=== PATIENT | male | born 1990 | race Hispanic/Latino ===

== ENCOUNTER 2021-02-27 15:24 | Outpatient (CLI) | payer BC, SELFPAY ==
[2021-02-27] MEDS: 0.9% Saline Lock 10 ML Syringe IV (15:48)
[2021-02-27 15:50] VITALS: BP 164/96; PULSE 102; RESP 16; TEMP 36.9; O2SAT 98; BMI 39.3
[2021-02-27 16:35] VITALS: BP 144/83; PULSE 90; RESP 16; TEMP 36.9; O2SAT 99
[2021-02-27 17:25] VITALS: BP 150/89; PULSE 89; RESP 16; TEMP 36.9; O2SAT 99
== END 2021-02-27 17:35 | disposition home or self-care (01) ==
LOC: MS3OUT 15:24 → MS3 15:25
PROVIDERS: PCP Family Medicine; Referring Provider Nurse Practitioner Adult Health; Visit Provider Nurse Practitioner Adult Health
DX: U07.1 COVID-19 (principal)
CPT/HCPCS: J7050; M0245; Q0245; A4216

== ENCOUNTER 2024-01-12 17:35 | Emergency (ER) | payer BC, SELFPAY ==
[2024-01-12 17:36] VITALS: BP 182/124; PULSE 86; RESP 16; TEMP 36.1; O2SAT 99; BMI 38.0
[2024-01-12 17:38] VITALS: BP 171/106; PULSE 86; RESP 16; O2SAT 98
--- NOTE | 2024-01-12 19:17 | ED.RN ---
pt states he would like to call PCP tmrw and imaging and not continue to wait
--- OUTSIDE RECORDS SUMMARY | 2024-01-12 19:27 | XMS RPT_ITS | CCD ---
Author Organization [facility] Care Team Providers Care Head Of Cytogenetics Name Role Phone Stephane Grullon MD Primary Care Provider YADI CHOI, DR CALDERÓN Primary Care Physician YADI CHOI., DR. CALDERÓN Attending Unavail dulce maria GRULLON MD., DR. CALDERÓN Primary Care Unavail dulce maria GRULLON MD., DR. CALDERÓN Referring Unavail Stephane Thao MD Primary Care Provider Stephane Grullon MD Primary Care Provider Stephane Grullon MD Primary Care Provider STEPHANE GRULLON Attending STEPHANE Blackwell Primary Care Unavailable STEPHANE GRULLON Primary Care Unavailable STEPHANE GRULLON Referring STEPHANE Balckwell Primary Care Unavailable STEPHANE GRULLON Attending STEPHANE Blackwell Primary Care Unavailable LIZ MEJIA Referring Unavailable STEPHANE GRULLON Primary Care Unavailable Medications Current Medications Medication Drug Class(es) Dates Sig (Normalized) Sig (Original) CPAP (13 sources) Start: 02-03-2022 CPAP Indicatio ns: KIET (obstructive sleep apnea) Initiate Auto PAP @ 5-20 cm of water with humidification. Mask (per patient preference) optional chin strap (if indicated) , filters, tubing, humidifier and lifetime supplies. 1 Each 02/03/2022 Active Start: 02-03-2022 CPAP Indicatio ns: KIET (obstructive sleep apnea) Initiate Auto PAP @ 5-20 cm of water with humidification. Mask (per patient preference) optional chin strap (if indicated) , filters, tubing, humidifier and lifetime supplies. 1 Each 0 02/03/2022 Active Start: 09-25-2021 End: 02-03-2022 CPAP Indications: KIET (obstr uctive sleep apnea) Initiate Auto PAP @ 5-20 cm of water with humidification. Mask (per patient preference) optional chin strap (if indicated) , filters, tubing, humidifier and lifetime supplies. 1 Each 0 09/25/2021 02/03/2022 Discontinued Start: 09-25-2021 CPAP Indicatio ns: KIET (obstructive sleep apnea) Initiate Auto PAP @ 5-20 cm of water with humidification. Mask (per patient preference) optional chin strap (if indicated) , filters, tubing, humidifier and lifetime supplies. 1 Each 0 09/25/2021 Active Comment on above: Initiate Auto PAP @ 5-20 cm of water with humidification. Mask (per patient preference) optional chin strap (if indicated) , filters, tubing, humidifier and lifetime supplies. cyclobenzaprine hydrochloride 10 mg oral tablet (17 sources) Muscle Relaxant Start: End: take 1 tablet by mouth three times daily as needed for muscle spasms cyclobenzaprine (FLEXERIL) 10 mg tablet Indications: Bilateral low back pain with bilateral sciatica, unspecified chronicity Take 1 tablet by mouth three times daily as needed for muscle spasm. 30 tablet 07/15/2021 Active Comment on above: Take 1 tablet by keily three times daily as needed for Muscle Spasm. lisinopril 20 mg oral tablet (20 sources) Angiotensin Converting Enzyme Inhibitor Start: take 1 tablet by mouth once daily lisinopril (ZESTRIL) 20 mg tablet Indications: Hypertension, essential , Elevated LFTs Take 1 tablet by mouth once daily. 30 tablet 10/19/2023 Active Start: 09-12-2022 End: 10-18-2023 take 1 tablet by mouth once daily lisinopril (ZESTRIL) 20 mg tablet Indications: Hypertension, essential , Elevated LFTs Take 1 tablet by mouth once daily. 30 tablet 09/12/2022 10/18/2023 Discontinued Start: 06-28-2020 End: 09-12-2022 take 1 tablet by mouth once daily lisinopril (ZESTRIL) 10 mg tablet Indications: Hypertension, essential , Elevated LFTs Take 1 tablet by mouth once daily. 30 tablet 11 09/12/2022 09/12/2022 Discontinued Comment on above: Take 1 tablet by keily th once daily. Problems Active Problems Problem Classification Problem Date Documented Da te Episodic/Chronic Disorders of lipid metabolism (1 source) Hyperlipidemia; Translations: [Hyperlipidemia, unspecified] Chronic Essential hypertension (20 sources) Essential hypertension; Translations: [Essential (primary) hypertension] Onset: 01-02-2021 Chronic Other aftercare (5 sources) Patient encounter status; Translations: [Encounter for therapeutic drug level monitoring] Episodic Other aftercare (1 source) Encounter for therapeutic drug level monitoring; Translations: [Medication monitoring encounter] Onset: 07-24-2023 Episodic Other lower respiratory disease (2 sources) Cough; Translations: [Acute cough] 05-04-2023 Episodic Other upper respiratory infections (1 source) Sore throat symptom; Translations: [Acute pharyngitis, unspecified] 05-04-2023 Episodic Residual codes; unclassified (4 sources) Obstructive sleep apnea syndrome; Translations: [Obstructive sleep apnea (adult) (pediatric)] Chronic Spondylosis; intervertebral disc disorders; other back problems (6 sources) Lumbago with sciatica; Translations: [Lumbago with sciatica, left side] Episodic Unclassified (1 source) Acute cough; Translations: [Acute cough] Onset: 05-04-2023 Past or Other Problems Problem Classification Problem Date Documented Da te Episodic/Chronic Other screening for suspected conditions (not mental disorders or infectious disease) (20 sources) Other specified abnormal findings of blood chemistry; Translations: [Other abnormal blood chemistry] Onset: 01-02-2021 Episodic Results Test Name Value Interpretation Reference Range Facility Comprehensive metabolic 2000 panelon 07-24-2023 Albumin [Mass/Vol] 4.5 g/dL Normal 3.9-4.9 [facility] Comment on above: Order Comment: Speci men Type: BLOOD SPECIMEN Ordering Facility: [facility] Address: [address] [place] [address] Performed By: #### 2 4323-8, 27526-4, 61144-4 #### [facility] CLIA [id number] [address] [place] [address] [place] [address] [place] ALP [Catalytic activity/Vol] 123 U/L High 38-113 [facility] Comment on above: Order Comment: Speci men Type: BLOOD SPECIMEN Ordering Facility: [facility] Address: [address] [place] [address] Performed By: #### 2 4323-8, 90321-9, 51772-7 #### [facility] CLIA [id number] [address] [place] [address] [place] ALT [Catalytic activity/Vol] 27 U/L Normal 10-54 [facility] Comment on above: Order Comment: Speci men Type: BLOOD SPECIMEN Ordering Facility: [facility] Address: [address] [place] [address] Performed By: #### 2 4323-8, 13520-1, 54072-0 #### [facility] CLIA [id number] [address] [place] [address] [place] Anion gap [Moles/Vol] 11 mmol/L Normal 9-18 [facility] Comment on above: Order Comment: Speci men Type: BLOOD SPECIMEN Ordering Facility: [facility] Address: [address] [place] [address] Performed By: #### 2 4323-8, 44442-0, 45106-1 #### [facility] CLIA [id number] [address] [place] [address] [place] AST [Catalytic activity/Vol] 35 U/L Normal 14-40 [facility] Comment on above: Order Comment: Speci men Type: BLOOD SPECIMEN Ordering Facility: [facility] Address: [address] [place] [address] Performed By: #### 2 4323-8, 32678-5, 01565-1 #### [facility] CLIA [id number] [address] [place] [address] [place] Bilirubin [Mass/Vol] 2.3 mg/dL High 0.2-1.3 [facility] Comment on above: Order Comment: Speci men Type: BLOOD SPECIMEN Ordering Facility: [facility] Address: [address] [place] [address] Performed By: #### 2 4323-8, 32039-1, 30885-3 #### [facility] CLIA [id number] [address] [place] [address] [place] Calcium [Mass/Vol] 11.0 mg/dL High 8.5-10.2 [facility] Comment on above: Order Comment: Speci men Type: BLOOD SPECIMEN Ordering Facility: [facility] Address: [address] [place] [address] Performed By: #### 2 4323-8, 74374-4, 26043-5 #### [facility] CLIA [id number] [address] [place] [address] [place] Chloride [Moles/Vol] 103 mmol/L Normal 97-105 [facility] Comment on above: Order Comment: Speci men Type: BLOOD SPECIMEN Ordering Facility: [facility] Address: [address] [place] [address] Performed By: #### 2 4323-8, 73169-7, 34067-9 #### [facility] CLIA [id number] [address] [place] [address] [place] CO2 [Moles/Vol] 23 mmol/L Normal 22-30 [facility] Comment on above: Order Comment: Speci men Type: BLOOD SPECIMEN Ordering Facility: [facility] Address: [address] [place] [address] Performed By: #### 2 4323-8, 23563-8, 13101-0 #### [facility] CLIA [id number] [address] [place] [address] [place] Creatinine [Mass/Vol] 1.17 mg/dL Normal 0.73-1.22 [facility] Comment on above: Order Comment: Speci men Type: BLOOD SPECIMEN Ordering Facility: [facility] Address: [address] [place] [address] Performed By: #### 2 4323-8, 77596-1, 71147-2 #### [facility] CLIA [id number] [address] [place] [address] [place] Creatinine and Glomerular filtration rate.predicted panel (S/P/Bld) 85 mL/min/1.73m??? Normal >=60 [facility] Comment on above: Order Comment: Jimmy leblanc Type: BLOOD SPECIMEN Ordering Facility: [facility] Address: [address] [place] [address] Result Comment: Trista mated Glomerular Filtration Rate (eGFR) is calculated using the 2020 CKD-EPI creatinine equation. This equation utilizes serum creatinine, sex, and age as parameters. The creatinine assay has traceable calibration to isotope dilution-mass spectrometry. Refer to KDIGO guidelines for clinical interpretation. In patients with unstable renal function, e.g. those with acute kidney injury, the eGFR may not accurately reflect actual GFR. Performed By: #### 2 4323-8, 41356-2, 04542-8 #### [facility] CLIA [id number] [address] [place] [address] [place] Glucose [Mass/Vol] 103 mg/dL High 74-99 [facility] Comment on above: Order Comment: Jimmy leblanc Type: BLOOD SPECIMEN Ordering Facility: [facility] Address: [address] [place] [address] Result Comment: The [place] Diabetes Association (ADA) provides guidance for cutoff values for fasting glucose and random glucose. The ADA defines fasting as no caloric intake for at least 8 hours. Fasting plasma glucose results between 100 to 125 mg/dL indicate increased risk for diabetes (prediabetes). Fasting plasma glucose results greater than or equal to 126 mg/dL meet the criteria for diagnosis of diabetes. In the absence of unequivocal hyperglycemia, results should be confirmed by repeat testing. In a patient with classic symptoms of hyperglycemia or hyperglycemic crisis, random plasma glucose results greater than or equal to 200 mg/dL meet the criteria for diagnosis of diabetes. Reference: Standards of Medical Care in Diabetes 2016, [place] [employer]. Diabetes Care. 2016.39(Suppl 1). Performed By: #### 2 4323-8, 53336-0, 22381-1 #### [facility] CLIA [id number] [address] [place] [address] [place] Potassium [Moles/Vol] 4.5 mmol/L Normal 3.7-5.1 [facility] Comment on above: Order Comment: Speci men Type: BLOOD SPECIMEN Ordering Facility: [facility] Address: [address] [place] [address] Performed By: #### 2 4323-8, 14109-3, 71050-6 #### [facility] CLIA [id number] [address] [place] [address] [place] Protein [Mass/Vol] 7.0 g/dL Normal 6.3-8.0 [facility] Comment on above: Order Comment: Speci men Type: BLOOD SPECIMEN Ordering Facility: [facility] Address: [address] [place] [address] Performed By: #### 2 4323-8, 29030-2, 57346-3 #### [facility] CLIA [id number] [address] [place] [address] [place] Sodium [Moles/Vol] 137 mmol/L Normal 136-144 [facility] Comment on above: Order Comment: Speci men Type: BLOOD SPECIMEN Ordering Facility: [facility] Address: [address] [place] [address] Performed By: #### 2 4323-8, 60945-8, 39328-6 #### [facility] CLIA [id number] [address] [place], [place] [address] [place] Urea nitrogen [Mass/Vol] 15 mg/dL Normal 9-24 [facility] Comment on above: Order Comment: Speci men Type: BLOOD SPECIMEN Ordering Facility: [facility] Address: [address] [place] [address] Performed By: #### 2 4323-8, 86034-4, 67907-9 #### [facility] CLIA [id number] [address] [facility] [id number] [place] [address] [place] ESTROGEN FRACTION BLon 07-23 ESTRADIOL 12.9 pg/mL Normal 10.0-42.0 [facility] Comment on above: Order Comment: Speci men Type: BLOOD SPECIMEN Ordering Facility: [facility] Address: [address] [place] [address] Result Comment: REFE RENCE INTERVAL: Estradiol by House Officer For a complete set of all established reference intervals, refer to [employer]/Tests/Pub/[id number]. This test was developed and its performance characteristics determined by [facility]. It has not been cleared or approved by the US Food and Drug Administration. This test was performed in a CLIA certified laboratory and is intended for clinical purposes. Performed By: #### E STGMISBAH #### [facility] CLIA [id number] [address] [place] [address] ESTROGENS TOTAL 22.3 pg/mL Normal 19.0-69.0 [facility] Comment on above: Order Comment: Speci men Type: BLOOD SPECIMEN Ordering Facility: [facility] Address: [address] [place] [address] Result Comment: Refe rence interval of estrogens (pg/mL) Estrone Estradiol Total Estrogens Early follicular <150.0 30.0-100.0 30.0-250.0 Late follicular 100.0-250.0 100.0-400.0 200.0-650.0 Luteal <200.0 50.0-150.0 50.0-350.0 Post-menopausal 3.0-32.0 2.0-21.0 5.0-52.0 REFERENCE INTERVAL: Estrogens Total Calculation For a complete set of all established reference intervals, refer to [facility]/Tests/Pub/[id number]. Performed By: [facility] [address] [place] [address] Quick Technician: Luis E Torres MD, PhD CLIA Number: [id number] Performed By: #### E STGEN #### [facility] CLIA [id number] [address] [place] [address] ESTRONE 9.4 pg/mL Normal 9.0-36.0 [facility] Comment on above: Order Comment: Speci men Type: BLOOD SPECIMEN Ordering Facility: [facility] Address: [address] [place] [address] Result Comment: INTERPRETIVE INFORMATION: Estrone by House Officer For a complete set of all established reference intervals, refer to [email or web address]/Tests/Pub/[id number]. This test was developed and its performance characteristics determined by [facility]. It has not been cleared or approved by the US Food and Drug Administration. This test was performed in a CLIA certified laboratory and is intended for clinical purposes. Performed By: #### E STGEN #### [facility] CLIA [id number] [address] [place] [address] SerPl-aCncon 07-24-2023 Lutropin Qn 0.1 m[IU]/mL Low 1.8-10.8 [facility] Comment on above: Order Comment: Jimmy leblanc Type: BLOOD SPECIMEN Ordering Facility: [facility] Address: [address] [place] [address] Performed By: #### 2 4323-8, 34368-2, 42121-2 #### [facility] CLIA [id number] [address] [place] [address] [place] Lipid 1996 panelon 4 Cholesterol [Mass/Vol] 140 mg/dL Normal <200 [facility] Comment on above: Order Comment: Lucitai men Type: BLOOD SPECIMEN Ordering Facility: [facility] Address: [address] [place] [address] Result Comment: <200 mg/dL, Desirable 200-239 mg/dL, Borderline high >239 mg/dL, High Performed By: #### 2 4323-8, 87024-1, 16497-3 #### [facility] CLIA [id number] [address] [place] [address] [place] Cholesterol in HDL [Mass/Vol] 28 mg/dL Low >39 [facility] Comment on above: Order Comment: Jimmy benji Type: BLOOD SPECIMEN Ordering Facility: [facility] Address: [address] [place] [address] Result Comment: 40-5 9 mg/dL, Acceptable >59 mg/dL, High: Negative risk factor for coronary heart disease <40 mg/dL, Low: Positive risk factor for coronary heart disease Performed By: #### 2 4323-8, 62891-2, 45813-1 #### [facility] CLIA [id number] [address] [place], [place] [address] [address] [place] Cholesterol in LDL [Mass/Vol] 100 mg/dL High <100 [facility] Comment on above: Order Comment: Speci men Type: BLOOD SPECIMEN Ordering Facility: [facility] Address: [address] [place] [address] Result Comment: <100 mg/dL, Optimal 100-129 mg/dL, Near optimal/above optimal 130-159 mg/dL, Borderline high 160-189 mg/dL, High >189 mg/dL, Very high Secondary prevention optimal LDL Cholesterol levels are recommended to be < 70 mg/dL Performed By: #### 2 4323-8, 87953-1, 11065-9 #### [facility] CLIA [id number] [address] [place] [address] [place] Cholesterol in LDL/Cholesterol in HDL [Mass ratio] 3.57 {ratio} High <2.54 [facility] Comment on above: Order Comment: Speci men Type: BLOOD SPECIMEN Ordering Facility: [facility] Address: [address] [place] [address] Result Comment: Pollo de leon: 1. National Cholesterol Education Program ATP III Guideline At-A-Glance Quick Desk Reference: National Heart, Lung, and Blood [place]. National Institutes of Health. 2001: NIH Publication No. 01-3305. 2. An International Atherosclerosis Society position paper: global recommendations for the management of dyslipidemia: executive summary, Atherosclerosis. 2014: 232(2):410-413. Performed By: #### 2 4323-8, 85385-9, 55072-1 #### [facility] CLIA [id number] [address] [place] [address] [place] Cholesterol in VLDL [Mass/Vol] 12 mg/dL Normal <30 [facility] Comment on above: Order Comment: Speci men Type: BLOOD SPECIMEN Ordering Facility: [facility] Address: [address] [place] [address] Performed By: #### 2 4323-8, 08741-0, 51806-1 #### [facility] CLIA [id number] [address] [place] [address] [place] Cholesterol non HDL [Mass/Vol] 112 mg/dL Normal <130 [facility] Comment on above: Order Comment: Speci men Type: BLOOD SPECIMEN Ordering Facility: [facility] Address: [address] [place] [address] Result Comment: <130 mg/dL, Optimal 130-159 mg/dL, Near optimal/above optimal 160-189 mg/dL, Borderline high 190-219 mg/dL, High >219 mg/dL, Very high Secondary prevention optimal non HDL Cholesterol levels are recommended to be <100 mg/dL Performed By: #### 2 4323-8, 09468-8, 04450-8 #### [facility] CLIA [id number] [address] [place] [address] [place] Cholesterol.total/Ch olesterol in HDL [Mass ratio] 5.00 {ratio} Normal <5.10 [facility] Comment on above: Order Comment: Speci men Type: BLOOD SPECIMEN Ordering Facility: [facility] Address: [address] [place] [address] Performed By: #### 2 4323-8, 28493-5, 16433-0 #### [facility] CLIA [id number] [address] [place] [address] [place] FASTING TIME 12 hrs Normal [facility] Comment on above: Order Comment: Speci men Type: BLOOD SPECIMEN Ordering Facility: [facility] Address: [address] [place] [address] Performed By: #### 2 4323-8, 72216-3, 72277-9 #### [facility] CLIA [id number] [address] [place] [address] [place] Triglyceride [Mass/Vol] 61 mg/dL Normal <150 [facility] Comment on above: Order Comment: Speci men Type: BLOOD SPECIMEN Ordering Facility: [facility] Address: [address] [place] [address] Result Comment: <150 mg/dL, Normal 150-199 mg/dL, Borderline high 200-499 mg/dL, High >499 mg/dL, Very high Performed By: #### 2 4323-8, 30523-6, 54766-7 #### [facility] CLIA [id number] [address] [place] [address] [place] TESTOSTERONE, FREE AND TOTAL on 07-24-2023 TESTOSTERONE, FREE, S 151 ng/dL High 4.85-19.0 [facility] Comment on above: Order Comment: Speci men Type: BLOOD SPECIMEN Ordering Facility: [facility] Address: [address] [place] [address] Result Comment: ADDITIONAL INFORMATION This test was developed and its performance characteristics determined by [facility] in a manner consistent with CLIA requirements. This test has not been cleared or approved by the U.S. Food and Drug Administration. Performed By: #### 2 4323-8, 71303-8, #### [facility] CLIA [id number] [address] [place] [address] [place] TESTOSTERONE, TOTAL, S 3340 ng/dL High 240-950 [facility] Comment on above: Order Comment: Speci men Type: BLOOD SPECIMEN Ordering Facility: [facility] Address: [address] [place] [address] Result Comment: ADDITIONAL INFORMATION Testing performed by Liquid Chromatography-Tandem Mass Spectrometry (LC-MS/MS). This test was developed and its performance characteristics determined by [facility] in a manner consistent with CLIA requirements. This test has not been cleared or approved by the U.S. Food and Drug Administration. Test Performed by: [facility] [address] [place] [address] Oil Refinery Operator: Elroy Goddard M.D. Ph.D.; CLIA# [id number] Performed By: #### 2 4323-8, 23044-2, 69290-4 #### [facility] CLIA [id number] [address] [place] [address] OF [facility] CNOVon 07-19-2023 CNOV Office Visit (FAMPWS ) FRANCK PALACIOS ([id number]) 1990 M Date Time Provider Department 07/19/23 6:00 PM [facility] During your visit today, we recorded the following information about you: Pulse Respiration Blood pressure Weight 80/minute 18/minute 126/84 130.1 kg Stephane Grullon MD 07/19/2023 7:15 PM Signed Chief Complaint Patient presents with: Follow Up HPI Franck Palacios is a 32 year old male who presents here today for a follow up. Here today for a follow up visit. Working 10 hour days, 4 days a week. Job is less stressful. Kids ages are 10, 9 and 7 for now. [facility]. Asking for Office to provide him documentation to where he was referred to [facility]. Stopped following with the [facility] when Cov[facility] started. He's working on making a claim with the [facility] for [facility]. Asking for lab work. HTN - Checks BP at home on occasion. BP ranging from 130-140/80's. Denies any chest pain, sob or dizziness. On current regimen of Lisinopril 20 mg once daily. This was increased at his last visit in September. Hx of elevated LFT's. Tries to watch his diet. Does competitive weight lifting for exercise. KIET - Uses AutoPap at 5-20 cm of water. Using nightly with benefit, feels much better with use of machine. [facility]. Takes Flexeril 10 mg prn for flare ups. Reports back overall doing well, very little flare ups. Tries to do exercises to help this. Hoping to get into competitive lifting. Did tear a pectoral muscle in January but is recovering. HM - Declines Hep C/HIV screening. Declines Covid vaccines. Behavioral Health Screening completed. Past medical history, appointments, medications, allergies reviewed. Previous Medical History PAST MEDICAL HISTORY Diagnosis Date Back pain 02/2016 [facility], Disability Previous Surgical History PAST SURGICAL HISTORY Procedure Laterality Date PAST SURGICAL HISTORY OF Right 2009 Meniscus removed from right knee PAST SURGICAL HISTORY OF Left 2008 Cartilage removed from ear (cauliflower ear) Family History FAMILY HISTORY Problem Relation Age of Onset Diabetes Mother Diabetes Father Diabetes Maternal Grandfather Diabetes Paternal Grandmother Cancer Paternal Grandfather Lung Cancer Diabetes Sister Pre-DM in 1 sister Patient Allergies ALLERGIES No Known Allergies Current Medications Current Outpatient Medications on File Prior to Visit Medication Sig lisinopril (ZESTRIL) 20 mg tablet Take 1 tablet by mouth once daily. CPAP Initiate Auto PAP @ 5-20 cm of water with humidification. Mask (per patient preference) optional chin strap (if indicated) , filters, tubing, humidifier and lifetime supplies. cyclobenzaprine (FLEXERIL) 10 mg tablet Take 1 tablet by mouth three times daily as needed for muscle spasm. No current facility-administered medications on file prior to visit. Social History Social History Tobacco Use Smoking status: Former Smokeless tobacco: Current Types: Chew Substance Use Topics Alcohol use: No Comment: occasional/social Drug use: No EXAM: BP 126/84 (BP Site: Left Arm, BP Position: Sitting, BP Cuff Size: Large Adult) Pulse 80 Resp 18 Wt 130.1 kg (286 lb 12.8 oz) BMI 38.90 kg/m? General Appearance: Well appearing, alert, in no acute distress, well-hydrated, well nourished.. Lungs: Lungs clear to auscultation. No wheezing, rhonchi, rales.. Heart: RRR without murmur, gallop, or rubs. No ectopy. Health Maintenance List Hepatitis C Screening Never done HIV Screening Never done BP Controlled (<130/80) Never done Covid-19 Vaccine( - season) Never done Behavioral Health Screening Never done Annual PCP Team Chronic Disease Visit due on 09/13/2023 Influenza Vaccine(Season Ended) due on 11/14/2023 DTaP,Tdap,Td Vaccine(4 - Td or Tdap) due on 03/07/2029 Hepatitis B Vaccine Completed HPV Vaccine Aged Out Data reviewed None ASSESSMENT/PLAN: 1. Hypertension, essential - ICD9: 401.9, ICD10: I10 (primary diagnosis) - Controlled - Continue current medications - Recommend home blood pressure monitoring, to bring results to next visit - Encouraged sodium restriction, DASH or Mediterranean diet - Recommend regular aerobic exercise - COMPREHENSIVE METABOLIC PANEL - LIPID PANEL BASIC 2. Elevated LFTs - ICD9: 790.6, ICD10: R79.89 - check labs - Continue watching diet and exercise - LIPID PANEL BASIC 3. KIET (obstructive sleep apnea) - ICD9: 327.23, ICD10: G47.33 - Stable with use of AutoPap 4. Bilateral low back pain with bilateral sciatica, unspecified chronicity - ICD9: 724.3, 724.2, ICD10: M54.42, M54.41 Chronic low back pain - Stable, continue exercises and prn medication (Flexeril 5. Medication monitoring encounter - ICD9: V58.83, ICD10: Z51.81 - Labs ordered - TEST (more content not included)... Normal [facility] CNOVon 05-04-2023 CNOV Office Visit (UCWSTR ) FRANCK PALACIOS ([id number]) 1990 M Date Time Provider Department 05/04/23 12:45 PM LIZ MEJIA UCWSTR During your visit today, we recorded the following information about you: Temperature Pulse Respiration Blood pressure 97.5 degrees 83/minute 18/minute 138/78 Weight 129.3 kg Liz Mejia APRN.HOSPITALIST MEDICAL DIRECTOR 05/04/2023 2:04 PM Signed CC: Patient presents with: Cough: Chest congestion, productive cough with bloody sputum, headache, R side of throat sore x 2 days Patient reports cough and sore throat for two days. Patient is concerned that he started coughing up blood streaked sputum. Patient has history of pneumonia but denies pleuritic pain with respiration. 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 HPI: Franck Palacios is a 32 year old male who presents to the office with complaint of respiratory symptoms, head congestion, cough, productive, sore throat, and fever for 2 days. Symptoms are worsening Associated symptoms includes sore throat, nasal congestion, headache, fever, and cough. Denies body aches, rash, dyspnea, nausea, vomiting , and diarrhea. Treatments tried include nothing so far. with no relief of symptoms. Sick contacts: yes. History of asthma, frequent episodes of bronchitis, chronic bronchitis, bronchiectasis or COPD: No Smoker: No Seasonal/environmental allergies: No The ROS is otherwise negative. The patient's pmh, medications, allergies, and past visits are reviewed. PHYSICAL EXAM: BP 138/78 Pulse 83 Temp 36.4 ?C (97.5 ?F) Resp 18 Wt 129.3 kg (285 lb) SpO2 97% BMI 38.65 kg/m? General appearance: alert, cooperative, pleasant, in no acute distress Head: Normocephalic Eyes: PERRLA, EOM's intact, conjunctiva pink and moist, no icterus, sclera white, non-injected Ears: Right ear: External ear/canal- Normal, TM - clear with good landmarks. Left ear: External ear/canal- Normal, TM - clear with good landmarks Nose: clear. Oropharynx:moist without lesions, mild erythema, without exudates present Neck:supple and no adenopathy Heart: Negative. RRR without obvious murmur, gallop, or rubs. No ectopy. Lungs: clear to auscultation, without rales or wheeze, good air exchange PAST MEDICAL HISTORY Diagnosis Date Back pain 02/2016 [facility], Disability PAST SURGICAL HISTORY Procedure Laterality Date PAST SURGICAL HISTORY OF Right 2009 Meniscus removed from right knee PAST SURGICAL HISTORY OF Left 2008 Cartilage removed from ear (cauliflower ear) ALLERGIES Patient has no known allergies. MEDICATIONS lisinopril (ZESTRIL) 20 mg tablet Take 1 tablet by mouth once daily. CPAP Initiate Auto PAP @ 5-20 cm of water with humidification. Mask (per patient preference) optional chin strap (if indicated) , filters, tubing, humidifier and lifetime supplies. cyclobenzaprine (FLEXERIL) 10 mg tablet Take 1 tablet by mouth three times daily as needed for muscle spasm. FAMILY HISTORY Problem Relation Age of Onset Diabetes Mother Diabetes Father Diabetes Maternal Grandfather Diabetes Paternal Grandmother Cancer Paternal Grandfather Lung Cancer Diabetes Sister Pre-DM in 1 sister Social History Tobacco Use Smoking status: Former Smokeless tobacco: Current Types: Chew Substance Use Topics Alcohol use: No Comment: occasional/social Drug use: No DATA REVIEWED: Most recent labs and imaging results. ASSESSMENT/PLAN: 1. Acute cough - ICD9: 786.2, ICD10: R05.1 (primary diagnosis) - Continue supportive care with OTC cold/cough mediations, fluids - Follow up with PCP as needed - XR CHEST 2V FRONTAL/LAT 2. Sore throat - ICD9: 462, ICD10: J02.9 - suspect viral - Rapid Strep negative in the office today - Discussed supportive care treatment with fluids, rest and analgesia. - [facility] - STREP A MOLECULAR (POC) - COVID AND INFLUENZA A/B AND RSV NAAT, ROUTINE Potential red flag symptoms discussed with the patient. Reviewed appropriate action plan to take if red flag symptoms occur. Patient agreeable to treatment plan. Irina Earl Supervising provider was present and guided the care of the patient for the entire session on this date. All documentation was reviewed and agreed upon. Liz Mejia APRN.HOSPITALIST MEDICAL DIRECTOR Allergies As of Date: 05/04/2023 (No Known Allergies) Date Reviewed: 05/04/2023 Reviewed by: Karin Hernandez LPN - Fully Assessed Reason for Visit: Cough [28] Cmt: Chest congestion, productive cough with bloody sputum, headache, R side of throat sore x 2 days Primary Visit Diagnosis:Acute cough [R05.1] Other Visit Diagnosis:Sore throat [J02.9] Order(s):XR CHEST 2V FRONTAL/LAT [3400082] Order #: [id number] FUTURE STREP A MOLECULAR (POC) [3314619] Order #: [id number] #:[id number] COVID AND INFLUENZA A/ (more content not included)... Normal [facility] COVID AND INFLUENZA A/B AND RSV NAAT, ROUTINEon 05-04-2023 SARS-CoV-2 (COVID-19) RNA SHIRLEY+probe Ql (Unsp spec) COVID 19 RESULT: Not detected The method used is RT-PCR or an equivalent NAAT method. Reference Range (the expected result in uninfected individuals): Not detected INFLUENZA A PCR: Not detected INFLUENZA B PCR: Not detected RSV PCR: Not detected Normal [facility] Comment on above: Performed By: #### 2 4323-8, 59188-0, 06221-4 #### [facility] CLIA [id number] [address] [place] [address] [place] STREP A MOLECULAR (POC)on Procedural Control Valid [facility] Strep A (POCT) Negative Negative [facility] XR CHEST 2V FRONTAL/LATon XR CHEST 2V FRONTAL/LAT * * *Final Report* * * DATE OF EXAM: May 04 2023 12:59PM WOX [id number] - XR CHEST 2V FRONTAL/LAT / PROCEDURE REASON: Acute cough * * * * Physician Interpretation * * * * EXAMINATION: CHEST RADIOGRAPH (2 VIEW FRONTAL and LATERAL), 05/04/2023 CLINICAL HISTORY: Acute cough MQ: XC2_6 EXAM DATE/TIME: 05/04/2023 12:59 PM COMPARISON: 04/10/2019. RESULT: Lines, tubes, and devices: None. Lungs and pleura: No consolidation. No lung mass. No pleural effusion. No pneumothorax. Cardiomediastinal silhouette: Normal cardiomediastinal silhouette. Bones and soft tissues: Unremarkable. IMPRESSION: Normal chest. No acute radiographic abnormality. Molasses Feed Mixer: CAM Transcribe Date/Time: May 04 2023 1:16P Dictated by : TYRONE FRANCO MD This examination was interpreted and the report reviewed and electronically signed by: TYRONE FRANCO MD on May 04 2023 1:39PM EST [id number] Normal [facility] XR Chest PA and Lateralon IMPRESSION: Normal chest. No acute radiographic abnormality. Molasses Feed Mixer: PSCB Transcribe Date/Time: May 04 2023 1:16P Dictated by : TYRONE FRANCO MD This examination was interpreted and the report reviewed and electronically signed by: TYRONE FRANCO MD on May 04 2023 1:39PM EST DIVISION OF RADIOLOGY * * *Final Report* * * DATE OF EXAM: May 04 2023 12:59PM WOX [id number] - XR CHEST 2V FRONTAL/LAT / PROCEDURE REASON: Acute cough * * * * Physician Interpretation * * * * EXAMINATION: CHEST RADIOGRAPH (2 VIEW FRONTAL & LATERAL), 05/04/2023 CLINICAL HISTORY: Acute cough MQ: XC2_6 EXAM DATE/TIME: 05/04/2023 12:59 PM COMPARISON: 04/10/2019. RESULT: Lines, tubes, and devices: None. Lungs and pleura: No consolidation. No lung mass. No pleural effusion. No pneumothorax. Cardiomediastinal silhouette: Normal cardiomediastinal silhouette. Bones and soft tissues: Unremarkable. DIVISION OF RADIOLOGY Provider, [facility] - 05/04/2023 * * *Final Report* * * DATE OF EXAM: May 04 2023 12:59PM WOX [id number] - XR CHEST 2V FRONTAL/LAT / PROCEDURE REASON: Acute cough * * * * Physician Interpretation * * * * EXAMINATION: CHEST RADIOGRAPH (2 VIEW FRONTAL & LATERAL), 05/04/2023 CLINICAL HISTORY: Acute cough MQ: XC2_6 EXAM DATE/TIME: 05/04/2023 12:59 PM COMPARISON: 04/10/2019. RESULT: Lines, tubes, and devices: None. Lungs and pleura: No consolidation. No lung mass. No pleural effusion. No pneumothorax. Cardiomediastinal silhouette: Normal cardiomediastinal silhouette. Bones and soft tissues: Unremarkable. IMPRESSION IMPRESSION: Normal chest. No acute radiographic abnormality. Molasses Feed Mixer: CAM Transcribe Date/Time: May 04 2023 1:16P Dictated by : TYRONE FRANCO MD This examination was interpreted and the report reviewed and electronically signed by: TYRONE FRANCO MD on May 04 2023 1:39PM EST [facility] Radiology Study observation (narrative) [facility] XR Chest PA and LateralOrder ed By: Ccf Provider on 05-04-2023 [facility] CNCOon 05-03-2023 CNCO Letter Text Normal [facility] CNPNon 11-18-2022 CNPN Telephone (FAMPWS) FRANCK PALACIOS ([id number]) 1990 M Date Time Provider Department 11/18/22 [facility] During your visit today, we recorded the following information about you: Spring Tony LPN 11/18/2022 12:29 PM Signed Bia with [facility] called for face sheet and copy of insurance cards. Identified pt with name and date of . FAX: [phone]. Done. Spring Tony LPN Allergies As of Date: 11/18/2022 (No Known Allergies) Date Reviewed: 09/12/2022 Reviewed by: Tabby Goel Ma - Fully Assessed Reason for Visit: [facility] [Other] Prescriptions as of 11/18/2022 - lisinopril (ZESTRIL) 20 mg tablet Take 1 tablet by mouth once daily. - CPAP Initiate Auto PAP @ 5-20 cm of water with humidification. Mask (per patient preference) optional chin strap (if indicated) , filters, tubing, humidifier and lifetime supplies. - cyclobenzaprine (FLEXERIL) 10 mg tablet Take 1 tablet by mouth three times daily as needed for muscle spasm. Meds Comments as of 04/05/2020: [facility] Problem List As Of Date 11/18/2022 Noted Resolved Hypertension, essential [I10] 01/02/2021 Elevated LFTs [R79.89] 01/02/2021 Encounter Status:Closed by SPRING TONY LPN on 11/18/22 [facility] CNOVon 09-12-2022 CNOV Office Visit (FAMPWS ) FRANCK PALACIOS ([id number]) 1990 M Date Time Provider Department 09/12/22 9:00 AM [facility] During your visit today, we recorded the following information about you: Pulse Respiration Blood pressure Weight 74/minute 16/minute 134/92 127 kg Stephane Grullon MD 09/12/2022 9:18 AM Signed Chief Complaint Patient presents with: 6 Month Exam HPI Franck Palacios is a 31 year old male who presents here today for 6 month follow up. No bowel, Gi, or urinary issues. Tries to watch diet and does weight lifting for exercise. Has a competition coming up, would like labs as he is a at high level of supplement use. 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 HTN: Denies any chest pains, dizziness, or SOB, no headaches, or palpitations. Taking Lisinopril 10 mg daily. Checking BP occ at home with readings running 150/90. KIET: Uses Auto PAP at 5-20 cm of water. Works very well for him. [facility]. Taking Flexeril 10 mg prn for flare ups. Doing well right now. 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 Past medical history, appointments, medications, allergies reviewed. Previous Medical History PAST MEDICAL HISTORY Diagnosis Date Back pain 02/2016 [facility], Disability Previous Surgical History PAST SURGICAL HISTORY Procedure Laterality Date PAST SURGICAL HISTORY OF Right 2009 Meniscus removed from right knee PAST SURGICAL HISTORY OF Left 2008 Cartilage removed from ear (cauliflower ear) Family History FAMILY HISTORY Problem Relation Age of Onset Diabetes Mother Diabetes Father Diabetes Maternal Grandfather Diabetes Paternal Grandmother Cancer Paternal Grandfather Lung Cancer Diabetes Sister Pre-DM in 1 sister Patient Allergies ALLERGIES No Known Allergies Current Medications Current Outpatient Medications on File Prior to Visit Medication Sig CPAP Initiate Auto PAP @ 5-20 cm of water with humidification. Mask (per patient preference) optional chin strap (if indicated) , filters, tubing, humidifier and lifetime supplies. cyclobenzaprine (FLEXERIL) 10 mg tablet Take 1 tablet by mouth three times daily as needed for muscle spasm. lisinopril (ZESTRIL, PRINIVIL) 10 mg tablet Take 1 tablet by mouth once daily. No current facility-administered medications on file prior to visit. Social History Social History Tobacco Use Smoking status: Former Smokeless tobacco: Current Types: Chew Substance Use Topics Alcohol use: No Comment: occasional/social Drug use: No EXAM: BP 134/92 Pulse 74 Resp 16 Wt 127 kg (280 lb) BMI 37.97 kg/m? General Appearance: Well appearing, alert, in no acute distress, well-hydrated, well nourished.. Lungs: Lungs clear to auscultation. No wheezing, rhonchi, rales.. Heart: RRR without murmur, gallop, or rubs. No ectopy. Health Maintenance List HEPATITIS B(1 of 3 - 3-dose series) Never done BP CONTROLLED (<130/80) Never done DEPRESSION ASSESSMENT due on 03/15/2022 HEPATITIS C SCREENING due on 01/20/2023 HIV SCREENING due on 01/20/2023 COVID-19 VACCINE(1) due on 01/20/2023 INFLUENZA(Season Ended) due on 11/13/2022 ANNUAL PCP TEAM CHRONIC DISEASE VISIT due on 01/20/2023 DTAP,TDAP,TD(2 - Td or Tdap) due on 03/07/2029 Data reviewed none ASSESSMENT/PLAN: 1. Hypertension, essential - ICD9: 401.9, ICD10: I10 (primary diagnosis) - Worsening control - Increase lisinopril - Recommend home blood pressure monitoring, to bring results to next visit - Encouraged sodium restriction, DASH or Mediterranean diet - COMP METABOLIC PANEL - CBC - LIPID PANEL BASIC - LISINOPRIL 20 MG TABLET 2. Elevated LFTs - ICD9: 790.6, ICD10: R79.89 - LISINOPRIL 20 MG TABLET 3. Medication monitoring encounter - ICD9: V58.83, ICD10: Z51.81 Labs ordered - COMP METABOLIC PANEL - CBC - TESTOSTERONE, FREE AND TOTAL - ESTROGEN FRACTION BL - LUTEINIZING HORMONE - SEX-HORMONE BINDING Notify of lab results Follow up in 6 months I agree with the Chief Complaint, ROS, and Past Histories independently gathered by the clinical computer support analyst and the remaining scribed note accurately describes my personal service to the patient. Medical Decision Making: Problems: Moderate: 1+ chronic illnesses with change Data: Unique test(s) ordered: 3+ Risk: Moderate: Drug management Medical Decision Making Level: 4 - Moderate Stephane Grullon MD The documentation for this note was completed by Tabby Goel Ma acting as scribe for Stephane Grullon MD. September 12, 2022 8:49 AM. Tabby Goel Ma Allergies As of Date: 09/12/2022 (No Known Allergies) Date Reviewed: 09/12/2022 Reviewed by: Tabby Goel Ma - Fully Assessed Reason for Visit: 6 Month Exam [189] Primary Visit Diagnosis:Hypertension , essential [I10] Other Visit Diagnoses:Elevated LFTs [R79.89] Med (more content not included)... [facility] ([id number]) 1990 M Date Time Provider Department 09/07/22 STEPHANE GRULLON During your visit today, we recorded the following information about you: Jero Gibson Ma 09/07/2022 12:42 PM Signed Type of form: Medical Necessity, KIET from [facility] Form received via fax When form is completed, Fax form to [facility] [phone] Form has been forwarded to Physician Desk: Dr. Yadi Gibson Ma 09/07/2022 2:08 PM Signed Completed and faxed to information below. Jero Gibson Ma Allergies As of Date: 09/07/2022 (No Known Allergies) Date Reviewed: 01/20/2022 Reviewed by: Jero Gibson Ma - Fully Assessed Reason for Visit: Forms [913] Cmt: [employer]; CPAP Prescriptions as of 09/07/2022 - CPAP Initiate Auto PAP @ 5-20 cm of water with humidification. Mask (per patient preference) optional chin strap (if indicated) , filters, tubing, humidifier and lifetime supplies. - cyclobenzaprine (FLEXERIL) 10 mg tablet Take 1 tablet by mouth three times daily as needed for muscle spasm. - lisinopril (ZESTRIL, PRINIVIL) 10 mg tablet Take 1 tablet by mouth once daily. Meds Comments as of 04/05/2020: [facility] Problem List As Of Date 09/07/2022 Noted Resolved Hypertension, essential [I10] 01/02/2021 Elevated LFTs [R79.89] 01/02/2021 Encounter Status:Closed by JERO GIBSON MA on 09/07/22 Normal [facility] Vital Signs Date Time Vital Sign Value Performing Clinician Jessica escalona 07-19-2023 18:13-0400 Body mass index (BMI) [Ratio] 38.9 kg/m2 Stephane Grullon MD Work Phone: [facility] 07-19-2023 18:13-0400 Body weight 130.09 kg Stephane Grullon MD Work Phone: [facility] 07-19-2023 18:13-0400 Diastolic blood pressure 84 mm[Hg] Stephane Grullon MD Work Phone: [facility] 07-19-2023 18:13-0400 Heart rate 80 /min Stephane Grullon MD Work Phone: [facility] 07-19-2023 18:13-0400 Respiratory rate 18 /min Stephane Grullon MD Work Phone: [facility] 07-19-2023 18:13-0400 Systolic blood pressure 126 mm[Hg] Stephane Grullon MD Work Phone: [facility] 05-04-2023 12:38-0500 Body temperature 97.5 [degF] Liz Mejia APRN.HOSPITALIST MEDICAL DIRECTOR Work Phone: [facility] 05-04-2023 12:38-0500 Body weight 129.28 kg Liz Mejia APRN.HOSPITALIST MEDICAL DIRECTOR Work Phone: [facility] 05-04-2023 12:38-0500 Diastolic blood pressure 78 mm[Hg] Liz Mejia APRN.HOSPITALIST MEDICAL DIRECTOR Work Phone: [facility] 05-04-2023 12:38-0500 Heart rate 83 /min Liz Mejia APRN.HOSPITALIST MEDICAL DIRECTOR Work Phone: [facility] 05-04-2023 12:38-0500 Respiratory rate 18 /min Liz Mejia APRN.HOSPITALIST MEDICAL DIRECTOR Work Phone: [facility] 05-04-2023 12:38-0500 SaO2% (BldA) [Mass fraction] 97 % Liz Mejia APRN.HOSPITALIST MEDICAL DIRECTOR Work Phone: [facility] 05-04-2023 12:38-0500 Systolic blood pressure 138 mm[Hg] Liz Mejia APRN.HOSPITALIST MEDICAL DIRECTOR Work Phone: [facility] 09-12-2022 08:49-0400 Body weight 127.01 kg Stephane Gurllon MD Work Phone: [facility] 09-12-2022 08:49-0400 Diastolic blood pressure 92 mm[Hg] Stephane Grullon MD Work Phone: [facility] 09-12-2022 08:49-0400 Heart rate 74 /min Stephane Grullon MD Work Phone: [facility] 09-12-2022 08:49-0400 Respiratory rate 16 /min Stephane Grullon MD Work Phone: [facility] 09-12-2022 08:49-0400 Systolic blood pressure 134 mm[Hg] Stephane Grullon MD Work Phone: [facility] 01-20-2022 09:15-0500 Diastolic blood pressure 88 mm[Hg] Stephane Grullon MD Work Phone: [facility] 01-20-2022 09:15-0500 Systolic blood pressure 126 mm[Hg] Stephane Grullon MD Work Phone: [facility] 01-20-2022 09:12-0500 Body weight 126.01 kg Stephane Grullon MD Work Phone: [facility] 01-20-2022 09:12-0500 Heart rate 78 /min Stephane Grullon MD Work Phone: [facility] 01-20-2022 09:12-0500 Respiratory rate 16 /min Stephane Grullon MD Work Phone: [facility] 07-15-2021 09:18-0400 Body weight 128.28 kg Setphane Grlulon MD Work Phone: [facility] 07-15-2021 09:18-0400 Diastolic blood pressure 84 mm[Hg] Stephane Grullon MD Work Phone: [facility] 07-15-2021 09:18-0400 Heart rate 78 /min Stephane Grullon MD Work Phone: [facility] 07-15-2021 09:18-0400 Respiratory rate 16 /min Stephane Grullon MD Work Phone: [facility] 07-15-2021 09:18-0400 Systolic blood pressure 122 mm[Hg] Stephane Grullon MD Work Phone: [facility] Encounters Encounter Date Encounter Type Care Provider Facility Start: 10-18-2023 Refill Stephane aiken MD Work Phone: [facility] [place] Comment on above: Refill Request Start: 07-24-2023 End: 07-25-2023 ambulatory STEPHANE GRULLON Facility:[facility] Start: 07-19-2023 End: 07-19-2023 ambulatory STEPHANE GRULLON Facility:[facility] Start: 07-19-2023 End: 07-19-2023 Patient encounter procedure Stephane Grullon MD Work Phone: [facility] [place] Comment on above: Hypertension, essent ial (Primary Dx); Elevated LFTs; KIET (obstructive sleep apnea); Bilateral low back pain with bilateral sciatica, unspecified chronicity; Medication monitoring encounter Start: 05-04-2023 End: 05-04-2023 ambulatory STEPHANE GRULLON Facility:[facility] Start: 05-04-2023 End: 05-04-2023 Subsequent hospital visit by physician [facility] [place] Work Phone: Radiology Comment on above: Acute cough [R05.1] Start: 05-04-2023 End: 05-04-2023 Patient encounter procedure Liz Mejia APRN.CNP Work Phone: [facility] Comment on above: Acute cough (Primary Dx); Sore throat Start: 09-12-2022 End: 09-12-2022 ambulatory STEPHANE GRULLON Facility:[facility] Start: 09-12-2022 End: 09-12-2022 Patient encounter procedure Stephane Grullon MD Work Phone: [facility] [place] Comment on above: Hypertension, essent ial (Primary Dx); Elevated LFTs; Medication monitoring encounter Start: 09-07-2022 Telephone encounter Stephane valles MD Work Phone: [facility] [place] Comment on above: Forms ([employer]; CPAP ) Start: 05-28-2022 ambulatory Stephane aiken MD Work Phone: [facility] [place] Comment on above: [id number] Start: 02-06-2022 Telephone encounter Stephane valles MD Work Phone: [facility] [place] Comment on above: Forms ([employer]-KIET s upplies) Start: 02-03-2022 ambulatory Stephane aiken MD Work Phone: [facility] [place] Comment on above: Clap machine Start: 02-03-2022 Telephone encounter Stephane valles MD Work Phone: Internal Medicine [place] Comment on above: Information Start: 01-20-2022 End: 01-20-2022 Patient encounter procedure Stephane Grullon MD Work Phone: [facility] Comment on above: Hypertension, essent ial (Primary Dx); Bilateral low back pain with bilateral sciatica, unspecified chronicity; KIET (obstructive sleep apnea); Medication monitoring encounter Start: 10-25-2021 Orders Only Stephane aiken MD Work Phone: [facility] [place] Comment on above: Hypertension, essent ial (Primary Dx); Elevated LFTs; Medication monitoring encounter Start: 09-03-2021 End: 12-30-[address] STEPHANE GRULLON MD. Facility:[facility] Start: 09-03-2021 End: 12-30-[address] STEPHANE GRULLON MD [facility] Start: 08-26-2021 Chart [facility] Work Phone: Neurology Start: 08-19-2021 Telephone encounter Stephane valles MD Work Phone: [facility] [place] Comment on above: sleep study appt Start: 08-19-2021 End: 08-19-2021 ambulatory Stephane Grullon MD Work Phone: [facility] Comment on above: KIET (obstructive sle ep apnea) (Primary Dx); Bilateral low back pain with bilateral sciatica, unspecified chronicity Start: 08-19-2021 End: 08-19-2021 Telemedicine consultation with patient Stephane Grullon MD Work Phone: [facility] Start: 07-15-2021 End: 07-15-2021 Patient encounter procedure Stephane Grullon MD Work Phone: [facility] Comment on above: Hypertension, essent ial (Primary Dx); Bilateral low back pain with bilateral sciatica, unspecified chronicity; Elevated LFTs; Medication monitoring encounter; Hyperlipidemia, unspecified hyperlipidemia type Procedures Date Procedure Procedure Detail Performing Clinician Start: 07-19-2023 Adult depression screening assessment Stephane Grullon MD Work Phone: Start: 05-04-2023 Radiologic exam ches t 2 views Liz Mejia APRN.FIDE Work Phone: Start: 05-04-2023 STREP A MOLECULAR (POC) Liz Mejia APRN.HOSPITALIST MEDICAL DIRECTOR Work Phone: Start: 07-15-2021 Adult depression screening assessment Stephane Grullon MD Work Phone: Plan of Treatment Date Care Activity Detail Author Start: 03-07-2029 Urine microalbumin profile [facility] Start: 07-18-2024 Annual PCP Team Anesthesiology Physician shagufta Disease Visit Annual PCP Team Chronic Disease Visit [facility] Start: 07-18-2024 Anxiety Screening Anxiety Screening [facility] Start: 07-18-2024 Covid-19 Vaccine () Covid-19 Vaccine () [facility] Comment on above: Postponed from 11/13 (Declined at this time) Start: 07-18-2024 Depression Screening Depression Scre ening [facility] Start: 07-18-2024 Hepatitis C screening Hepatitis C Sc carlos [facility] Comment on above: Postponed from 11/19 (Declined at this time) Start: 07-18-2024 HIV screening HIV Screening [facility] Comment on above: Postponed from 11/19 (Declined at this time) Start: 01-21-2024 End: 01-21-2024 Patient encounter procedure 01/21/2024 11:00 AM EST Office Visit Family [facility] [address] [place] [address] Stephane Grullon MD [address] [place], [place] [id number] 6 mo f/u [facility] Comment on above: 6 mo f/u Start: 11-14-2023 Covid-19 Vaccine () Covid-19 Vaccine () [facility] Start: 11-14-2023 Influenza vaccination [facility] Start: 09-13-2023 ANNUAL PCP TEAM MATH SPECIALIST SHAGUFTA DISEASE VISIT ANNUAL PCP TEAM CHRONIC DISEASE VISIT [facility] Start: 07-20-2023 End: 10-19-2023 Comprehensive metabolic 2000 panel - Serum or Plasma COMPREHENSIVE METABOLIC PANEL Lab Routine Hypertension, essential Expected: 07/20/2023 (Approximate), Expires: 10/19/2023 [facility] Work Phone: Comment on above: Expected: 07/20/2023 (Approximate), Expires: 10/19/2023 Start: 07-20-2023 End: 10-19-2023 ESTROGEN FRACTION BL ESTROGEN FRACTION BL Lab Routine Medication monitoring encounter Expected: 07/20/2023 (Approximate), Expires: 10/19/2023 [facility] Comment on above: Expected: 07/20/2023 (Approximate), Expires: 10/19/2023 Start: 07-20-2023 End: 10-19-2023 Lipid 1996 panel - Serum or Plasma LIPID PANEL BASIC Lab Routine Hypertension, essential Elevated LFTs Expected: 07/20/2023 (Approximate), Expires: 10/19/2023 [facility] Comment on above: Expected: 07/20/2023 (Approximate), Expires: 10/19/2023 Start: 07-20-2023 End: 10-19-2023 Lutropin [Units/volume] in Serum or Plasma LUTEINIZING HORMONE Lab Routine Medication monitoring encounter Expected: 07/20/2023 (Approximate), Expires: 10/19/2023 [facility] Comment on above: Expected: 07/20/2023 (Approximate), Expires: 10/19/2023 Start: 07-20-2023 End: 10-19-2023 TESTOSTERONE, FREE AND TOTAL TESTOSTERONE, FREE AND TOTAL Lab Routine Medication monitoring encounter Expected: 07/20/2023 (Approximate), Expires: 10/19/2023 [facility] Comment on above: Expected: 07/20/2023 (Approximate), Expires: 10/19/2023 Start: 03-15-2023 Depression Assessment Depression Ass essment [facility] Start: 01-20-2023 ANNUAL PCP TEAM MATH SPECIALIST SHAGUFTA DISEASE VISIT ANNUAL PCP TEAM CHRONIC DISEASE VISIT [facility] Start: 01-20-2023 COVID-19 VACCINE (#1) COVID-19 VACCI NE (#1) [facility] Comment on above: Postponed from 05/19 (Declined at this time) Start: 01-20-2023 HEPATITIS C SCREENING HEPATITIS C SC [facility] Comment on above: Postponed from 11/19 (Declined at this time) Start: 01-20-2023 HIV SCREENING HIV SCREENING [facility] Comment on above: Postponed from 11/19 (Declined at this time) Start: 11-13-2022 Influenza vaccination [facility] Start: 09-12-2022 End: 11-12-2022 CBC panel - Blood by Automated count CBC Lab Routine Hypertension, essential Medication monitoring encounter Expected: 09/12/2022 (Approximate), Expires: 11/12/2022 [facility] Work Phone: Comment on above: Expected: 09/12/2022 (Approximate), Expires: 11/12/2022 Start: 09-12-2022 End: 11-12-2022 Comprehensive metabolic 2000 panel - Serum or Plasma COMP METABOLIC PANEL Lab Routine Hypertension, essential Medication monitoring encounter Expected: 09/12/2022 (Approximate), Expires: 11/12/2022 [facility] Work Phone: Comment on above: Expected: 09/12/2022 (Approximate), Expires: 11/12/2022 Start: 09-12-2022 End: 11-12-2022 ESTROGEN FRACTION BL ESTROGEN FRACTION BL Lab Routine Medication monitoring encounter Expected: 09/12/2022 (Approximate), Expires: 11/12/2022 [facility] Work Phone: Comment on above: Expected: 09/12/2022 (Approximate), Expires: 11/12/2022 Start: 09-12-2022 End: 11-12-2022 Lipid 1996 panel - Serum or Plasma LIPID PANEL BASIC Lab Routine Hypertension, essential Expected: 09/12/2022 (Approximate), Expires: 11/12/2022 [facility] Work Phone: Comment on above: Expected: 09/12/2022 (Approximate), Expires: 11/12/2022 Start: 09-12-2022 End: 11-12-2022 Lutropin [Units/volume] in Serum or Plasma LUTEINIZING HORMONE Lab Routine Medication monitoring encounter Expected: 09/12/2022 (Approximate), Expires: 11/12/2022 [facility] Work Phone: Comment on above: Expected: 09/12/2022 (Approximate), Expires: 11/12/2022 Start: 09-12-2022 End: 11-12-2022 Sex hormone binding globulin [Moles/volume] in Serum or Plasma SEX-HORMONE BINDING Lab Routine Medication monitoring encounter Expected: 09/12/2022, Expires: 11/12/2022 [facility] Work Phone: Comment on above: Expected: 09/12/2022 , Expires: 11/12/2022 Start: 09-12-2022 End: 11-12-2022 TESTOSTERONE, FREE AND TOTAL TESTOSTERONE, FREE AND TOTAL Lab Routine Medication monitoring encounter Expected: 09/12/2022 (Approximate), Expires: 11/12/2022 [facility] Work Phone: Comment on above: Expected: 09/12/2022 (Approximate), Expires: 11/12/2022 Start: 09-11-2022 Influenza vaccination INFLUENZA (#1) [facility] Comment on above: Postponed from 11/13 (Declined at this time) Start: 08-19-2022 ANNUAL PCP TEAM MATH SPECIALIST SHAGUFTA DISEASE VISIT ANNUAL PCP TEAM CHRONIC DISEASE VISIT [facility] Start: 07-15-2022 Adult depression screening assessment DEPRESSION SCREENING [facility] Start: 07-15-2022 ANNUAL PCP TEAM MATH SPECIALIST SHAGUFTA DISEASE VISIT ANNUAL PCP TEAM CHRONIC DISEASE VISIT [facility] Start: 04-22-2022 End: 06-22-2022 Comprehensive metabolic 2000 panel - Serum or Plasma COMP METABOLIC PANEL Lab Routine Hypertension, essential Expected: 04/22/2022 (Approximate), Expires: 06/22/2022 [facility] Work Phone: Comment on above: Expected: 04/22/2022 (Approximate), Expires: 06/22/2022 Start: 04-22-2022 End: 06-22-2022 ESTROGEN FRACTION BL ESTROGEN FRACTION BL Lab Routine Hypertension, essential Medication monitoring encounter Expected: 04/22/2022 (Approximate), Expires: 06/22/2022 [facility] Work Phone: Comment on above: Expected: 04/22/2022 (Approximate), Expires: 06/22/2022 Start: 04-22-2022 End: 06-22-2022 Lipid 1996 panel - Serum or Plasma LIPID PANEL BASIC Lab Routine Hypertension, essential Expected: 04/22/2022 (Approximate), Expires: 06/22/2022 [facility] Work Phone: Comment on above: Expected: 04/22/2022 (Approximate), Expires: 06/22/2022 Start: 04-22-2022 End: 06-22-2022 Lutropin [Units/volume] in Serum or Plasma LUTEINIZING HORMONE Lab Routine Hypertension, essential Medication monitoring encounter Expected: 04/22/2022 (Approximate), Expires: 06/22/2022 [facility] Work Phone: Comment on above: Expected: 04/22/2022 (Approximate), Expires: 06/22/2022 Start: 04-22-2022 End: 06-22-2022 TESTOSTERONE, FREE AND TOTAL TESTOSTERONE, FREE AND TOTAL Lab Routine Hypertension, essential Medication monitoring encounter Expected: 04/22/2022 (Approximate), Expires: 06/22/2022 [facility] Work Phone: Comment on above: Expected: 04/22/2022 (Approximate), Expires: 06/22/2022 Start: 03-15-2022 DEPRESSION ASSESSMENT DEPRESSION ASS ESSMENT [facility] Start: 01-02-2022 COVID-19 VACCINE (#1) COVID-19 VACCI NE (#1) [facility] Comment on above: Postponed from 11/19 (Declined at this time) Postponed from 05/19 (Declined at this time) Start: 01-02-2022 COVID-19 VACCINE (1) COVID-19 VACCIN E (1) [facility] Comment on above: Postponed from 11/19 (Declined at this time) Start: 01-02-2022 HEPATITIS C SCREENING HEPATITIS C SC [facility] Comment on above: Postponed from 11/19 (Declined at this time) Start: 01-02-2022 HIV SCREENING HIV SCREENING [facility] Comment on above: Postponed from 11/19 (Declined at this time) Start: 11-13-2021 Influenza vaccination [facility] Start: 10-25-2021 End: 12-25-2021 Comprehensive metabolic 2000 panel - Serum or Plasma [facility] Work Phone: Comment on above: Expected: 10/25/2021 (Approximate), Expires: 12/25/2021 Start: 10-25-2021 End: 12-25-2021 ESTROGEN FRACTION BL [facility] Work Phone: Comment on above: Expected: 10/25/2021 (Approximate), Expires: 12/25/2021 Start: 10-25-2021 End: 12-25-2021 Lipid 1996 panel - Serum or Plasma [facility] Work Phone: Comment on above: Expected: 10/25/2021 (Approximate), Expires: 12/25/2021 Start: 10-25-2021 End: 12-25-2021 Lutropin [Units/volume] in Serum or Plasma [facility] Work Phone: Comment on above: Expected: 10/25/2021 (Approximate), Expires: 12/25/2021 Start: 10-25-2021 End: 12-25-2021 TESTOSTERONE, FREE AND TOTAL [facility] Work Phone: Comment on above: Expected: 10/25/2021 (Approximate), Expires: 12/25/2021 Start: 07-15-2021 End: 09-14-2021 Comprehensive metabolic 2000 panel - Serum or Plasma COMP METABOLIC PANEL Lab Routine Hypertension, essential Elevated LFTs Hyperlipidemia, unspecified hyperlipidemia type Expected: 07/15/2021, Expires: 09/14/2021 [facility] Work Phone: Comment on above: Expected: 07/15/2021 , Expires: 09/14/2021 Start: 07-15-2021 End: 09-14-2021 ESTROGEN FRACTION BL ESTROGEN FRACTION BL Lab Routine Hypertension, essential Medication monitoring encounter Expected: 07/15/2021, Expires: 09/14/2021 [facility] Work Phone: Comment on above: Expected: 07/15/2021 , Expires: 09/14/2021 Start: 07-15-2021 End: 09-14-2021 LIPID PANEL BASIC LIPID PANEL BASIC Lab Routine Hypertension, essential Hyperlipidemia, unspecified hyperlipidemia type Expected: 07/15/2021, Expires: 09/14/2021 [facility] Work Phone: Comment on above: Expected: 07/15/2021 , Expires: 09/14/2021 Start: 07-15-2021 End: 09-14-2021 Lutropin [Units/volume] in Serum or Plasma LUTEINIZING HORMONE Lab Routine Hypertension, essential Medication monitoring encounter Expected: 07/15/2021, Expires: 09/14/2021 [facility] Work Phone: Comment on above: Expected: 07/15/2021 , Expires: 09/14/2021 Start: 07-15-2021 End: 09-14-2021 TESTOSTERONE, FREE AND TOTAL TESTOSTERONE, FREE AND TOTAL Lab Routine Hypertension, essential Medication monitoring encounter Expected: 07/15/2021, Expires: 09/14/2021 [facility] Work Phone: Comment on above: Expected: 07/15/2021 , Expires: 09/14/2021 Start: 11-19-2009 BP CONTROLLED (<130/80) BP CONTROLLE D (<130/80) [facility] Start: 11-19-2009 Hepatitis C screening Hepatitis C Sc reening [facility] Start: 11-19-2009 HIV screening HIV Screening [facility] Start: 05-19-1992 Covid-19 Vaccine (#1) Covid-19 Vacci ne (#1) [facility] Start: 1991 HEPATITIS B (1 of 3 - 3-dose series) HEPATITIS B (1 of 3 - 3-dose series) [facility] COVID & INFLUENZA A/ B & RSV NAAT, ROUTINE COVID & INFLUENZA A/B & RSV NAAT, ROUTINE Microbiology Routine Sore throat 05/04/2023 12:58 PM EST [facility] Work Phone: End: 08-19-2022 HOME SLEEP APNEA TEST (HSAT) HOME SLEEP APNEA TEST (HSAT) Procedures Routine KIET (obstructive sleep apnea) 1 Occurrences starting 08/19/2021 until 08/19/2022 [facility] Work Phone: Comment on above: 1 Occurrences starti ng 08/19/2021 until 08/19/2022 End: 09-18-2022 PAP TITRATION PSG (CPAP, BIPAP, ASV) PAP TITRATION PSG (CPAP, BIPAP, ASV) Procedures Routine KIET (obstructive sleep apnea) 1 Occurrences starting 08/19/2021 until 09/18/2022 [facility] Work Phone: Comment on above: 1 Occurrences starti ng 08/19/2021 until 09/18/2022 [facility] Immunizations Immunization Date Immunization Notes Care Provider [facility] 01-23-2020 influenza, injectabl e, quadrivalent, contains preservative Stephane Grullon MD Work Phone: [facility] 01-23-2020 influenza virus vaccine, unspecified formulation Liz Mejia APRN.[facility] Work Phone: [facility] 03-07-2019 tetanus toxoid, redu don diphtheria toxoid, and acellular pertussis vaccine, adsorbed Stephane Grullon MD Work Phone: [facility] Payers Date Payer Category Payer Unknown [id number] 2021 Unknown [id number] 2017 Unknown [employer] PPO OOS [id number] 2017-Present [phone] [facility] [id number] [place] [address] PPO [id number] Unknown [id number] 1991 Unknown [id number] Social History Date Type Detail Facility Start: 07-03-2020 End: 01-20-2022 Tobacco smoking status NHIS Ex-smoker [facility] End: 07-03-2010 History of tobacco use Current smoker [facility] Start: 07-03-2020 End: 01-20-2022 Tobacco use and exposure User of smokeless tobacco [facility] History of tobacco use [facility] Start: 07-15-2021 End: 05-04-2023 Alcohol intake Current non-drinker of alcohol (finding) [facility] Start: 10-08-2017 History SDOH Alcohol Comment occasional/social [facility] Start: 1990 Sex Assigned At Not on file [facility] Start: 07-05-2021 End: 02-01-2022 Exposure to SARS-CoV-2 (event) Not sure [facility] Start: 08-19-2021 End: 09-08-2022 History SDOH Alcohol Frequency 2 [facility] Start: 08-19-2021 End: 09-08-2022 History SDOH Alcohol Std Drinks 1 [facility] Start: 08-19-2021 End: 09-08-2022 History SDOH Social Connections [facility] Start: 08-19-2021 End: 09-08-2022 History SDOH Physical Activity DPW 4 [facility] Start: 08-19-2021 History SDOH Physica l Activity MPS 13 [facility] Start: 09-08-2022 History SDOH Physica l Activity MPS 9 [facility] Start: 1990 Sex Assigned At Male [facility] Start: 08-19-2021 End: 09-08-2022 History of Social function [facility] Start: 08-19-2021 End: 09-08-2022 Social connection and isolation panel [facility] Start: 09-08-2022 Frequency of Communication with Friends and Family Not on file [facility] Work Phone: Do you belong to any clubs or organizations such as mosque groups, unions, fraternal or athletic groups, or school groups? Yes [facility] How often to you hav e a drink containing alcohol? Monthly or less [facility] How many standard dr inks containing alcohol do you have on a typical day? 1 or 2 [facility] How often do you hav e 6 or more drinks on 1 occasion? Never [facility] How hard is it for y ou to pay for the very basics like food, housing, medical care, and heating Not very hard [facility] Do you feel stress - tense, restless, nervous, or anxious, or unable to sleep at night because your mind is troubled all the time - these days [OSQ] Only a little [facility] (I/We) worried wheth er (my/our) food would run out before (I/we) got money to buy more. Never true [facility] In the past 12 month s, was there a time when you were not able to pay the mortgage or rent on time? No [facility] Start: 09-08-2022 Gender identity Identifies as male gender (finding) [facility] Functional Status Date Assessment Result Facility 09-03-2021 Functional Status Home Living Ad ditional Information Objective: Observation: flat lumbar lordosis in sitting and standing, very slight lateral shift L in standing noted. Sensation: grossly intact and symmetrical to light touch bilat LE's Cardiovascular screen: BP :130/88 HR: 87 O2 sat: 97% Reflexes: Quads R: 1+ L: 1+ Achilles R: 1+ L: 1+ Gait: does have some mild excess pelvic sway no other deficits noted. Functional strength: able to heel and toe walk. Trunk AROM: Flex: min loss no pain Ext: mod loss ERP SGIS: R: mod loss ERP L: min loss Repeated Motion Testing: flex in seated and single knee to chest reduced/abolished pain, Ext in standing or SGIS tended to increase and peripheralize symptoms Special Tests: Slump:- SLR: - Cross leg raise:- Prone instability: Hip Screen: MICHELLE:- FADIR:+ Scour: - Hip IR: see chart [facility] Clinical Notes 07-15-2021 to 10-19-2023 Telephone Encounter - Cyril Arreguin APRN.HOSPITALIST MEDICAL DIRECTOR - 10/19/2023 8:05 AM EDTTelephone Encounter - Cyril Arreguin APRN.HOSPITALIST MEDICAL DIRECTOR - 10/19/2023 8:05 AM Stephane Arce MD - 07/19/2023 5:56 PM EDT Note Date & Type Note Facility 10-19-2023 Telephone encounter Note The following approved medication requests have been transmitted electronically. Requested Prescriptions Pending Prescriptions Disp Refills lisinopril (ZESTRIL) 20 mg tablet 30 tablet 11 Sig: Take 1 tablet by mouth once daily. Cyril Arreguin APRN.FIDE [facility] 10-19-2023 Miscellaneous Notes The following approved medication requests have been transmitted electronically. Requested Prescriptions Pending Prescriptions Disp Refills lisinopril (ZESTRIL) 20 mg tablet 30 tablet 11 Sig: Take 1 tablet by mouth once daily. Cyril Arreguin APRN.CNP [facility]-07/19/23 Labs-07/24/23Jan-01/21/24 Di Song LPN documented in this encounter [facility] 10-19-2023 Telephone encounter Note [facility]-07/19/23 Labs-07/24/23Jan-01/21/24 Di Song LPN [facility] 07-19-2023 Note HNO ID: [id number] Author: STEPHANE GRULLON MD Service: ? Author Type: Physician Type: Progress Notes Filed: 07/19/2023 19:15 Note Text: Chief Complaint Patient presents with: Follow Up HPI Franck Palacios is a 32 year old male who presents here today for a follow up. Here today for a follow up visit. Working 10 hour days, 4 days a week. Job is less stressful. Kids ages are 10, 9 and 7 for now. Pt here [facility] for [facility]. Asking for Office to provide him documentation to where he was referred to [facility]. Stopped following with the [facility] when Covid started. He's working on making a claim with the [facility] for his back. Asking for lab work. HTN - Checks BP at home on occasion. BP ranging from 130-140/80's. Denies any chest pain, sob or dizziness. On current regimen of Lisinopril 20 mg once daily. This was increased at his last visit in September. Hx of elevated LFT's. Tries to watch his diet. Does competitive weight lifting for exercise. KIET - Uses [employer] at 5-20 cm of water. Using nightly with benefit, feels much better with use of machine. [facility] Takes Flexeril 10 mg prn for flare ups. Reports back overall doing well, very little flare ups. Tries to do exercises to help this. Hoping to get into competitive lifting. Did tear a pectoral muscle in January but is recovering. HM - Declines Hep C/HIV screening. Declines Covid vaccines. Behavioral Health Screening completed. Past medical history, appointments, medications, allergies reviewed. Previous Medical History PAST MEDICAL HISTORY Diagnosis Date Back pain 02/2016 [facility], Disability Previous Surgical History PAST SURGICAL HISTORY Procedure Laterality Date PAST SURGICAL HISTORY OF Right 2010 Meniscus removed from right knee PAST SURGICAL HISTORY OF Left 2008 Cartilage removed from ear (cauliflower ear) Family History FAMILY HISTORY Problem Relation Age of Onset Diabetes Mother Diabetes Father Diabetes Maternal Grandfather Diabetes Paternal Grandmother Cancer Paternal Grandfather Lung Cancer Diabetes Sister Pre-DM in 1 sister Patient Allergies ALLERGIES No Known Allergies Current Medications Current Outpatient Medications on File Prior to Visit Medication Sig lisinopril (ZESTRIL) 20 mg tablet Take 1 tablet by mouth once daily. CPAP Initiate Auto PAP @ 5-20 cm of water with humidification. Mask (per patient preference) optional chin strap (if indicated) , filters, tubing, humidifier and lifetime supplies. cyclobenzaprine (FLEXERIL) 10 mg tablet Take 1 tablet by mouth three times daily as needed for muscle spasm. No current facility-administered medications on file prior to visit. Social History Social History Tobacco Use Smoking status: Former Smokeless tobacco: Current Types: Chew Substance Use Topics Alcohol use: No Comment: occasional/social Drug use: No EXAM: BP 126/84 (BP Site: Left Arm, BP Position: Sitting, BP Cuff Size: Large Adult) Pulse 80 Resp 18 Wt 130.1 kg (286 lb 12.8 oz) BMI 38.90 kg/m? General Appearance: Well appearing, alert, in no acute distress, well-hydrated, well nourished.. Lungs: Lungs clear to auscultation. No wheezing, rhonchi, rales.. Heart: RRR without murmur, gallop, or rubs. No ectopy. Health Maintenance List Hepatitis C Screening Never done HIV Screening Never done BP Controlled (<130/80) Never done Covid-19 Vaccine( season) Never done Behavioral Health Screening Never done Annual PCP Team Chronic Disease Visit due on 09/13/2023 Influenza Vaccine(Season Ended) due on 11/14/2023 DTaP,Tdap,Td Vaccine(4 - Td or Tdap) due on 03/07/2029 Hepatitis B Vaccine Completed HPV Vaccine Aged Out Data reviewed None ASSESSMENT/PLAN: 1. Hypertension, essential - ICD9: 401.9, ICD10: I10 (primary diagnosis) - Controlled - Continue current medications - Recommend home blood pressure monitoring, to bring results to next visit - Encouraged sodium restriction, DASH or Mediterranean diet - Recommend regular aerobic exercise - COMPREHENSIVE METABOLIC PANEL - LIPID PANEL BASIC 2. Elevated LFTs - ICD9: 790.6, ICD10: R79.89 - check labs - Continue watching diet and exercise - LIPID PANEL BASIC 3. KIET (obstructive sleep apnea) - ICD9: 327.23, ICD10: G47.33 - Stable with use of AutoPap 4. Bilateral low back pain with bilateral sciatica, unspecified chronicity - ICD9: 724.3, 724.2, ICD10: M54.42, M54.41 Chronic low back pain - Stable, continue exercises and prn medication (Flexeril 5. Medication monitoring encounter - ICD9: V58.83, ICD10: Z51.81 - Labs ordered - TESTOSTERONE, FREE AND TOTAL - ESTROGEN FRACTION BL - LUTEINIZING HORMONE 6 mo f/u. Complete fasting labs as ordered; notify of results I agree with the Chief Complaint, ROS, and Past Histories independently gathered by the clinical computer support analyst and the remaining scr (more content not included)... [facility] 07-19-2023 History of Presen t illness Narrative Chief Complaint Patient presents with: Follow Up HPI Franck Palacios is a 32 year old male who presents here today for a follow up. Here today for a follow up visit. Working 10 hour days, 4 days a week. Job is less stressful. Kids ages are 10, 9 and 7 for now. Pt here [facility]. Asking for Office to provide him documentation to where he was referred to [facility]. Stopped following with the [facility] when Covid started. He's working on making a claim with the [facility] for [facility]. Asking for lab work. HTN - Checks BP at home on occasion. BP ranging from 130-140/80's. Denies any chest pain, sob or dizziness. On current regimen of Lisinopril 20 mg once daily. This was increased at his last visit in September. Hx of elevated LFT's. Tries to watch his diet. Does competitive weight lifting for exercise. KIET - Uses AutoPap at 5-20 cm of water. Using nightly with benefit, feels much better with use of machine. [facility]. Takes Flexeril 10 mg prn for flare ups. Reports back overall doing well, very little flare ups. Tries to do exercises to help this. Hoping to get into competitive lifting. Did tear a pectoral muscle in January but is recovering. HM - Declines Hep C/HIV screening. Declines Covid vaccines. Behavioral Health Screening completed. Past medical history, appointments, medications, allergies reviewed. Previous Medical History PAST MEDICAL HISTORY Diagnosis Date Back pain 02/2016 [facility], Disability Previous Surgical History PAST SURGICAL HISTORY Procedure Laterality Date PAST SURGICAL HISTORY OF Right 2009 Meniscus removed from right knee PAST SURGICAL HISTORY OF Left 2008 Cartilage removed from ear (cauliflower ear) Family History FAMILY HISTORY Problem Relation Age of Onset Diabetes Mother Diabetes Father Diabetes Maternal Grandfather Diabetes Paternal Grandmother Cancer Paternal Grandfather Lung Cancer Diabetes Sister Pre-DM in 1 sister Patient Allergies ALLERGIES No Known Allergies Current Medications Current Outpatient Medications on File Prior to Visit Medication Sig lisinopril (ZESTRIL) 20 mg tablet Take 1 tablet by mouth once daily. CPAP Initiate Auto PAP @ 5-20 cm of water with humidification. Mask (per patient preference) optional chin strap (if indicated) , filters, tubing, humidifier and lifetime supplies. cyclobenzaprine (FLEXERIL) 10 mg tablet Take 1 tablet by mouth three times daily as needed for muscle spasm. No current facility-administered medications on file prior to visit. Social History Social History Tobacco Use Smoking status: Former Smokeless tobacco: Current Types: Chew Substance Use Topics Alcohol use: No Comment: occasional/social Drug use: No EXAM: BP 126/84 (BP Site: Left Arm, BP Position: Sitting, BP Cuff Size: Large Adult) Pulse 80 Resp 18 Wt 130.1 kg (286 lb 12.8 oz) BMI 38.90 kg/m General Appearance: Well appearing, alert, in no acute distress, well-hydrated, well nourished.. Lungs: Lungs clear to auscultation. No wheezing, rhonchi, rales.. Heart: RRR without murmur, gallop, or rubs. No ectopy. Health Maintenance List Hepatitis C Screening Never done HIV Screening Never done BP Controlled (<130/80) Never done Covid-19 Vaccine( season) Never done Behavioral Health Screening Never done Annual PCP Team Chronic Disease Visit due on 09/13/2023 Influenza Vaccine(Season Ended) due on 11/14/2023 DTaP,Tdap,Td Vaccine(4 - Td or Tdap) due on 03/07/2029 Hepatitis B Vaccine Completed HPV Vaccine Aged Out Data reviewed None ASSESSMENT/PLAN: 1. Hypertension, essential - ICD9: 401.9, ICD10: I10 (primary diagnosis) - Controlled - Continue current medications - Recommend home blood pressure monitoring, to bring results to next visit - Encouraged sodium restriction, DASH or Mediterranean diet - Recommend regular aerobic exercise - COMPREHENSIVE METABOLIC PANEL - LIPID PANEL BASIC 2. Elevated LFTs - ICD9: 790.6, ICD10: R79.89 - check labs - Continue watching diet and exercise - LIPID PANEL BASIC 3. KIET (obstructive sleep apnea) - ICD9: 327.23, ICD10: G47.33 - Stable with use of AutoPap 4. Bilateral low back pain with bilateral sciatica, unspecified chronicity - ICD9: 724.3, 724.2, ICD10: M54.42, M54.41 Chronic low back pain - Stable, continue exercises and prn medication (Flexeril 5. Medication monitoring encounter - ICD9: V58.83, ICD10: Z51.81 - Labs ordered - TESTOSTERONE, FREE AND TOTAL - ESTROGEN FRACTION BL - LUTEINIZING HORMONE 6 mo f/u. Complete fasting labs as ordered; notify of results I agree with the Chief Complaint, ROS, and Past Histories independently gathered by the clinical computer support analyst and the remaining scribed note accurately describes my personal service to the patient. Medical Decision Making: Problems: Moderate: 2+ stable chronic illnesses Data: Unique test(s) ordered: 3+ Risk: Moderate: Drug management Medical Decision Making Level: 4 - Moderate Stephane Grullon MD The documentation for this note was completed by Jero Gibson MA acting as scribe for Stephane Grullon MD. July 19, 2023 6:27 PM. Jero Gibson MA documented in this encounter [facility] 05-04-2023 Note HNO ID: [id number] Author: ANNETTA CAMPUZANO RT(R) Service: ? Author Type: Compliance Technician Type: Progress Notes Filed: 05/04/2023 12:58 Note Text: Radiology Service Progress Note PATIENT NAME: Franck Palacios DATE OF SERVICE: May 04, 2023 TIME: 12:49 PM PATIENT IDENTITY VERIFICATION COMPLETED USING TWO (2) IDENTIFIERS: Name and Date of confirmed by patient verbally. FALL SCREENING: Has the patient had 2 falls in the last year or 1 fall with injury or currently using an Ambulatory Assistive Device (Walker, Cane, Wheelchair, Crutches, etc.)? No PATIENT GENDER DATA: Male PATIENT RELEVANT IMPLANT DATA REVIEWED: Yes PATIENT PRESENTS WITH AN IMPLANTABLE OR ATTACHED OPTIMIZATION CONSULTANT: No RADIOLOGY DEPARTMENT: General X-ray: Exam(s) Completed: Chest X-Ray PERIPHERAL IV DATA: Not applicable SIGNED BY: RT Torrie(R) May 04, 2023 12:49 PM [facility] 05-04-2023 Note HNO ID: [id number] Author: LIZ MEJIA APRN.FIDE Service: ? Author Type: Nurse Practitioner Type: Progress Notes Filed: 05/04/2023 14:04 Note Text: CC: Patient presents with: Cough: Chest congestion, productive cough with bloody sputum, headache, R side of throat sore x 2 days Patient reports cough and sore throat for two days. Patient is concerned that he started coughing up blood streaked sputum. Patient has history of pneumonia but denies pleuritic pain with respiration. 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 HPI: Franck Palacios is a 32 year old male who presents to the office with complaint of respiratory symptoms, head congestion, cough, productive, sore throat, and fever for 2 days. Symptoms are worsening Associated symptoms includes sore throat, nasal congestion, headache, fever, and cough. Denies body aches, rash, dyspnea, nausea, vomiting , and diarrhea. Treatments tried include nothing so far. with no relief of symptoms. Sick contacts: yes. History of asthma, frequent episodes of bronchitis, chronic bronchitis, bronchiectasis or COPD: No Smoker: No Seasonal/environmental allergies: No The ROS is otherwise negative. The patient's pmh, medications, allergies, and past visits are reviewed. PHYSICAL EXAM: BP 138/78 Pulse 83 Temp 36.4 ?C (97.5 ?F) Resp 18 Wt 129.3 kg (285 lb) SpO2 97% BMI 38.65 kg/m? General appearance: alert, cooperative, pleasant, in no acute distress Head: Normocephalic Eyes: PERRLA, EOM's intact, conjunctiva pink and moist, no icterus, sclera white, non-injected Ears: Right ear: External ear/canal- Normal, TM - clear with good landmarks. Left ear: External ear/canal- Normal, TM - clear with good landmarks Nose: clear. Oropharynx:moist without lesions, mild erythema, without exudates present Neck:supple and no adenopathy Heart: Negative. RRR without obvious murmur, gallop, or rubs. No ectopy. Lungs: clear to auscultation, without rales or wheeze, good air exchange PAST MEDICAL HISTORY Diagnosis Date Back pain 02/2016 [facility], Disability PAST SURGICAL HISTORY Procedure Laterality Date PAST SURGICAL HISTORY OF Right 2010 Meniscus removed from right knee PAST SURGICAL HISTORY OF Left 2009 Cartilage removed from ear (cauliflower ear) ALLERGIES Patient has no known allergies. MEDICATIONS lisinopril (ZESTRIL) 20 mg tablet Take 1 tablet by mouth once daily. CPAP Initiate Auto PAP @ 5-20 cm of water with humidification. Mask (per patient preference) optional chin strap (if indicated) , filters, tubing, humidifier and lifetime supplies. cyclobenzaprine (FLEXERIL) 10 mg tablet Take 1 tablet by mouth three times daily as needed for muscle spasm. FAMILY HISTORY Problem Relation Age of Onset Diabetes Mother Diabetes Father Diabetes Maternal Grandfather Diabetes Paternal Grandmother Cancer Paternal Grandfather Lung Cancer Diabetes Sister Pre-DM in 1 sister Social History Tobacco Use Smoking status: Former Smokeless tobacco: Current Types: Chew Substance Use Topics Alcohol use: No Comment: occasional/social Drug use: No DATA REVIEWED: Most recent labs and imaging results. ASSESSMENT/PLAN: 1. Acute cough - ICD9: 786.2, ICD10: R05.1 (primary diagnosis) - Continue supportive care with OTC cold/cough mediations, fluids - Follow up with PCP as needed - XR CHEST 2V FRONTAL/LAT 2. Sore throat - ICD9: 462, ICD10: J02.9 - suspect viral - Rapid Strep negative in the office today - Discussed supportive care treatment with fluids, rest and analgesia. - Will follow up with MyChart for results of viral testing - STREP A MOLECULAR (POC) - COVID AND INFLUENZA A/B AND RSV NAAT, ROUTINE Potential red flag symptoms discussed with the patient. Reviewed appropriate action plan to take if red flag symptoms occur. Patient agreeable to treatment plan. Irina Earl Supervising provider was present and guided the care of the patient for the entire session on this date. All documentation was reviewed and agreed upon. Liz Mejia APRN.[facility] 05-04-2023 History of Presen t illness Narrative Radiology Service Progress Note PATIENT NAME: Franck Palacios DATE OF SERVICE: May 04, 2023 TIME: 12:49 PM PATIENT IDENTITY VERIFICATION COMPLETED USING TWO (2) IDENTIFIERS: Name and Date of confirmed by patient verbally. FALL SCREENING: Has the patient had 2 falls in the last year or 1 fall with injury or currently using an Ambulatory Assistive Device (Walker, Cane, Wheelchair, Crutches, etc.)? No PATIENT GENDER DATA: Male PATIENT RELEVANT IMPLANT DATA REVIEWED: Yes PATIENT PRESENTS WITH AN IMPLANTABLE OR ATTACHED OPTIMIZATION CONSULTANT: No RADIOLOGY DEPARTMENT: General X-ray: Exam(s) Completed: Chest X-Ray PERIPHERAL IV DATA: Not applicable SIGNED BY: RT Torrie(R) May 04, 2023 12:49 PM documented in this encounter [facility] 05-04-2023 History of Presen t illness Narrative CC: Patient presents with: Cough: Chest congestion, productive cough with bloody sputum, headache, R side of throat sore x 2 days Patient reports cough and sore throat for two days. Patient is concerned that he started coughing up blood streaked sputum. Patient has history of pneumonia but denies pleuritic pain with respiration. 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 HPI: Franck Palacios is a 32 year old male who presents to the office with complaint of respiratory symptoms, head congestion, cough, productive, sore throat, and fever for 2 days. Symptoms are worsening Associated symptoms includes sore throat, nasal congestion, headache, fever, and cough. Denies body aches, rash, dyspnea, nausea, vomiting , and diarrhea. Treatments tried include nothing so far. with no relief of symptoms. Sick contacts: yes. History of asthma, frequent episodes of bronchitis, chronic bronchitis, bronchiectasis or COPD: No Smoker: No Seasonal/environmental allergies: No The ROS is otherwise negative. The patient's pmh, medications, allergies, and past visits are reviewed. PHYSICAL EXAM: BP 138/78 Pulse 83 Temp 36.4 C (97.5 F) Resp 18 Wt 129.3 kg (285 lb) SpO2 97% BMI 38.65 kg/m General appearance: alert, cooperative, pleasant, in no acute distress Head: Normocephalic Eyes: PERRLA, EOM's intact, conjunctiva pink and moist, no icterus, sclera white, non-injected Ears: Right ear: External ear/canal- Normal, TM - clear with good landmarks. Left ear: External ear/canal- Normal, TM - clear with good landmarks Nose: clear. Oropharynx:moist without lesions, mild erythema, without exudates present Neck:supple and no adenopathy Heart: Negative. RRR without obvious murmur, gallop, or rubs. No ectopy. Lungs: clear to auscultation, without rales or wheeze, good air exchange PAST MEDICAL HISTORY Diagnosis Date Back pain 02/2016 [facility], Disability PAST SURGICAL HISTORY Procedure Laterality Date PAST SURGICAL HISTORY OF Right 2009 Meniscus removed from right knee PAST SURGICAL HISTORY OF Left 2008 Cartilage removed from ear (cauliflower ear) ALLERGIES Patient has no known allergies. MEDICATIONS lisinopril (ZESTRIL) 20 mg tablet Take 1 tablet by mouth once daily. CPAP Initiate Auto PAP @ 5-20 cm of water with humidification. Mask (per patient preference) optional chin strap (if indicated) , filters, tubing, humidifier and lifetime supplies. cyclobenzaprine (FLEXERIL) 10 mg tablet Take 1 tablet by mouth three times daily as needed for muscle spasm. FAMILY HISTORY Problem Relation Age of Onset Diabetes Mother Diabetes Father Diabetes Maternal Grandfather Diabetes Paternal Grandmother Cancer Paternal Grandfather Lung Cancer Diabetes Sister Pre-DM in 1 sister Social History Tobacco Use Smoking status: Former Smokeless tobacco: Current Types: Chew Substance Use Topics Alcohol use: No Comment: occasional/social Drug use: No DATA REVIEWED: Most recent labs and imaging results. ASSESSMENT/PLAN: 1. Acute cough - ICD9: 786.2, ICD10: R05.1 (primary diagnosis) - Continue supportive care with OTC cold/cough mediations, fluids - Follow up with PCP as needed - XR CHEST 2V FRONTAL/LAT 2. Sore throat - ICD9: 462, ICD10: J02.9 - suspect viral - Rapid Strep negative in the office today - Discussed supportive care treatment with fluids, rest and analgesia. - [facility] viral [facility] - STREP A MOLECULAR (POC) - COVID & INFLUENZA A/B & RSV NAAT, ROUTINE Potential red flag symptoms discussed with the patient. Reviewed appropriate action plan to take if red flag symptoms occur. Patient agreeable to treatment plan. Irina Earl Supervising provider was present and guided the care of the patient for the entire session on this date. All documentation was reviewed and agreed upon. Liz Mejia APRN.FIDE documented in this encounter [facility] 09-12-2022 Note HNO ID: [id number] Author: Stephane Grullon MD Service: ? Author Type: Physician Type: Progress Notes Filed: 09/12/2022 9:18 AM Note Text: Chief Complaint Patient presents with: 6 Month Exam HPI Franck Palacios is a 31 year old male who presents here today for 6 month follow up. No bowel, Gi, or urinary issues. Tries to watch diet and does weight lifting for exercise. Has a competition coming up, would like labs as he is a at high level of supplement use. 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 HTN: Denies any chest pains, dizziness, or SOB, no headaches, or palpitations. Taking Lisinopril 10 mg daily. Checking BP occ at home with readings running 150/90. KIET: Uses Auto PAP at 5-20 cm of water. Works very well for him. [facility]. Taking Flexeril 10 mg prn for flare ups. Doing well right now. 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 Past medical history, appointments, medications, allergies reviewed. Previous Medical History PAST MEDICAL HISTORY Diagnosis Date Back pain 02/2016 [facility] by [facility], Disability Previous Surgical History PAST SURGICAL HISTORY Procedure Laterality Date PAST SURGICAL HISTORY OF Right 2009 Meniscus removed from right knee PAST SURGICAL HISTORY OF Left 2008 Cartilage removed from ear (cauliflower ear) Family History FAMILY HISTORY Problem Relation Age of Onset Diabetes Mother Diabetes Father Diabetes Maternal Grandfather Diabetes Paternal Grandmother Cancer Paternal Grandfather Lung Cancer Diabetes Sister Pre-DM in 1 sister Patient Allergies ALLERGIES No Known Allergies Current Medications Current Outpatient Medications on File Prior to Visit Medication Sig CPAP Initiate Auto PAP @ 5-20 cm of water with humidification. Mask (per patient preference) optional chin strap (if indicated) , filters, tubing, humidifier and lifetime supplies. cyclobenzaprine (FLEXERIL) 10 mg tablet Take 1 tablet by mouth three times daily as needed for muscle spasm. lisinopril (ZESTRIL, PRINIVIL) 10 mg tablet Take 1 tablet by mouth once daily. No current facility-administered medications on file prior to visit. Social History Social History Tobacco Use Smoking status: Former Smokeless tobacco: Current Types: Chew Substance Use Topics Alcohol use: No Comment: occasional/social Drug use: No EXAM: BP 134/92 Pulse 74 Resp 16 Wt 127 kg (280 lb) BMI 37.97 kg/m? General Appearance: Well appearing, alert, in no acute distress, well-hydrated, well nourished.. Lungs: Lungs clear to auscultation. No wheezing, rhonchi, rales.. Heart: RRR without murmur, gallop, or rubs. No ectopy. Health Maintenance List HEPATITIS B(1 of 3 - 3-dose series) Never done BP CONTROLLED (<130/80) Never done DEPRESSION ASSESSMENT due on 03/15/2022 HEPATITIS C SCREENING due on 01/20/2023 HIV SCREENING due on 01/20/2023 COVID-19 VACCINE(1) due on 01/20/2023 INFLUENZA(Season Ended) due on 11/13/2022 ANNUAL PCP TEAM CHRONIC DISEASE VISIT due on 01/20/2023 DTAP,TDAP,TD(2 - Td or Tdap) due on 03/07/2029 Data reviewed none ASSESSMENT/PLAN: 1. Hypertension, essential - ICD9: 401.9, ICD10: I10 (primary diagnosis) - Worsening control - Increase lisinopril - Recommend home blood pressure monitoring, to bring results to next visit - Encouraged sodium restriction, DASH or Mediterranean diet - COMP METABOLIC PANEL - CBC - LIPID PANEL BASIC - LISINOPRIL 20 MG TABLET 2. Elevated LFTs - ICD9: 790.6, ICD10: R79.89 - LISINOPRIL 20 MG TABLET 3. Medication monitoring encounter - ICD9: V58.83, ICD10: Z51.81 Labs ordered - COMP METABOLIC PANEL - CBC - TESTOSTERONE, FREE AND TOTAL - ESTROGEN FRACTION BL - LUTEINIZING HORMONE - SEX-HORMONE BINDING Notify of lab results Follow up in 6 months I agree with the Chief Complaint, ROS, and Past Histories independently gathered by the clinical computer support analyst and the remaining scribed note accurately describes my personal service to the patient. Medical Decision Making: Problems: Moderate: 1+ chronic illnesses with change Data: Unique test(s) ordered: 3+ Risk: Moderate: Drug management Medical Decision Making Level: 4 - Moderate Stephane Grullon MD The documentation for this note was completed by Tabby Goel Ma acting as scribe for Stephane Grullon MD. September 12, 2022 8:49 AM. Tabby Goel Ma [facility] 09-12-2022 History of Presen t illness Narrative Chief Complaint Patient presents with: 6 Month Exam HPI Franck Palacios is a 31 year old male who presents here today for 6 month follow up. No bowel, Gi, or urinary issues. Tries to watch diet and does weight lifting for exercise. Has a competition coming up, would like labs as he is a at high level of supplement use. 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 HTN: Denies any chest pains, dizziness, or SOB, no headaches, or palpitations. Taking Lisinopril 10 mg daily. Checking BP occ at home with readings running 150/90. KIET: Uses Auto PAP at 5-20 cm of water. Works very well for him. [facility]. Taking Flexeril 10 mg prn for flare ups. Doing well right now. 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 Past medical history, appointments, medications, allergies reviewed. Previous Medical History PAST MEDICAL HISTORY Diagnosis Date Back pain 02/2016 [facility], Disability Previous Surgical History PAST SURGICAL HISTORY Procedure Laterality Date PAST SURGICAL HISTORY OF Right 2009 Meniscus removed from right knee PAST SURGICAL HISTORY OF Left 2008 Cartilage removed from ear (cauliflower ear) Family History FAMILY HISTORY Problem Relation Age of Onset Diabetes Mother Diabetes Father Diabetes Maternal Grandfather Diabetes Paternal Grandmother Cancer Paternal Grandfather Lung Cancer Diabetes Sister Pre-DM in 1 sister Patient Allergies ALLERGIES No Known Allergies Current Medications Current Outpatient Medications on File Prior to Visit Medication Sig CPAP Initiate Auto PAP @ 5-20 cm of water with humidification. Mask (per patient preference) optional chin strap (if indicated) , filters, tubing, humidifier and lifetime supplies. cyclobenzaprine (FLEXERIL) 10 mg tablet Take 1 tablet by mouth three times daily as needed for muscle spasm. lisinopril (ZESTRIL, PRINIVIL) 10 mg tablet Take 1 tablet by mouth once daily. No current facility-administered medications on file prior to visit. Social History Social History Tobacco Use Smoking status: Former Smokeless tobacco: Current Types: Chew Substance Use Topics Alcohol use: No Comment: occasional/social Drug use: No EXAM: BP 134/92 Pulse 74 Resp 16 Wt 127 kg (280 lb) BMI 37.97 kg/m General Appearance: Well appearing, alert, in no acute distress, well-hydrated, well nourished.. Lungs: Lungs clear to auscultation. No wheezing, rhonchi, rales.. Heart: RRR without murmur, gallop, or rubs. No ectopy. Health Maintenance List HEPATITIS B(1 of 3 - 3-dose series) Never done BP CONTROLLED (<130/80) Never done DEPRESSION ASSESSMENT due on 03/15/2022 HEPATITIS C SCREENING due on 01/20/2023 HIV SCREENING due on 01/20/2023 COVID-19 VACCINE(1) due on 01/20/2023 INFLUENZA(Season Ended) due on 11/13/2022 ANNUAL PCP TEAM CHRONIC DISEASE VISIT due on 01/20/2023 DTAP,TDAP,TD(2 - Td or Tdap) due on 03/07/2029 Data reviewed none ASSESSMENT/PLAN: 1. Hypertension, essential - ICD9: 401.9, ICD10: I10 (primary diagnosis) - Worsening control - Increase lisinopril - Recommend home blood pressure monitoring, to bring results to next visit - Encouraged sodium restriction, DASH or Mediterranean diet - COMP METABOLIC PANEL - CBC - LIPID PANEL BASIC - LISINOPRIL 20 MG TABLET 2. Elevated LFTs - ICD9: 790.6, ICD10: R79.89 - LISINOPRIL 20 MG TABLET 3. Medication monitoring encounter - ICD9: V58.83, ICD10: Z51.81 Labs ordered - COMP METABOLIC PANEL - CBC - TESTOSTERONE, FREE AND TOTAL - ESTROGEN FRACTION BL - LUTEINIZING HORMONE - SEX-HORMONE BINDING Notify of lab results Follow up in 6 months I agree with the Chief Complaint, ROS, and Past Histories independently gathered by the clinical computer support analyst and the remaining scribed note accurately describes my personal service to the patient. Medical Decision Making: Problems: Moderate: 1+ chronic illnesses with change Data: Unique test(s) ordered: 3+ Risk: Moderate: Drug management Medical Decision Making Level: 4 - Moderate Stephane Grullon MD The documentation for this note was completed by Tabby Goel Ma acting as scribe for Stephane Grullon MD. September 12, 2022 8:49 AM. Tabby Goel Ma documented in this encounter [facility] 09-07-2022 Miscellaneous Notes Completed and faxed to information below. Jero Gibson Ma Type of form: Medical Necessity, KIET from [facility] Form received via fax When form is completed, Fax form to [facility] [phone] Form has been forwarded to Physician Desk: Dr. Yadi Gibson Ma documented in this encounter [facility] 05-28-2022 Miscellaneous Notes See pt message and advise. Is this something you prescribe? Jero Gibson Ma documented in this encounter [facility] 02-06-2022 Miscellaneous Notes This has been completed, signed and faxed back to information below. Jero Gibson Ma Type of letter/form/fax request - [facility]-KIET supplies Form received from fax on 1 floor and placed on MD desk () for completion. Completed form needs to be faxed to [facility] at . Route to [place] when form completed for processing documented in this encounter [facility] 02-03-2022 Miscellaneous Notes Demo, ov, sleep studies faxed to [facility]. Tabby Goel Ma [facility] did receive the C-Pap order, they are needing demographics, chart notes, sleep study. Please fax to [facility] [phone]. Karley Rome LPN documented in this encounter [facility] 02-03-2022 Miscellaneous Notes Order faxed to [facility] [place]. Pt notified via [employer]. Tabby Goel Ma Order printed Stephane Grullon MD Pt was given CPAP Rx. Can we reprint and signc CPAP order so we can fax to [facility] as noted by pt. Jero Gibson Ma documented in this encounter [facility] 01-20-2022 Instructions Jero Gibson Ma - 01/20/2022 9:12 AM EST Call Member Services on the back of you insurance card and ask what Durable [employer] Equipment Company (DME) is covered by your insurance, due to diagnoses of sleep apnea. Update office via [employer]. documented in this encounter [facility] 01-20-2022 History of Presen t illness Narrative Chief Complaint Patient presents with: F/U 6 Month HPI Franck Palacios is a 31 year old male who presents here today for a 6 month follow up. Pt here today for a 6 month f/u. Has 3 kids ages 8, 6 and 4 as of presently. HTN - Checks BP at home on occasion. BP around 120's/90's. Denies any chest pain, sob or dizziness. On current regimen of Lisinopril 10 mg once daily, tolerating well. Exercises by lifting. Has lost some weight. Pain - [facility] Uses Flexeril 10 mg prn for intermittent flare ups, doing well at this time. Still lifts, but modifies his work out. Reports that he has a bruised hamstring and almost tore a pectoral muscle. Trying to taking things easy as of presently. Wants to start competing next summer, will start training. KIET - Uses [employer]. Pt mailed order to his home address, as we were uncertain what DME Co he used. Pt still has not used this. Does note he has episodes of where he stops breathing, waking up gasping. Has lost some weight which has helped. Pt will update office with insurance information. Cycling on hormones. Following diet to drop down to the next weight class of 275 lbs. HM - Declines Covid vaccines. Declines Hep C or HIV screening. Declines depression symptoms. Declines Flu today. Past medical history, appointments, medications, allergies reviewed. Previous Medical History PAST MEDICAL HISTORY Diagnosis Date Back pain 02/2016 [facility] Previous Surgical History PAST SURGICAL HISTORY Procedure Laterality Date PAST SURGICAL HISTORY OF Right 2009 Meniscus removed from right knee PAST SURGICAL HISTORY OF Left 2008 Cartilage removed from ear (cauliflower ear) Family History FAMILY HISTORY Problem Relation Age of Onset Diabetes Mother Diabetes Father Diabetes Maternal Grandfather Diabetes Paternal Grandmother Cancer Paternal Grandfather Lung Cancer Diabetes Sister Pre-DM in 1 sister Patient Allergies ALLERGIES No Known Allergies Current Medications Current Outpatient Medications on File Prior to Visit Medication Sig CPAP Initiate Auto PAP @ 5-20 cm of water with humidification. Mask (per patient preference) optional chin strap (if indicated) , filters, tubing, humidifier and lifetime supplies. cyclobenzaprine (FLEXERIL) 10 mg tablet Take 1 tablet by mouth three times daily as needed for muscle spasm. lisinopril (ZESTRIL, PRINIVIL) 10 mg tablet Take 1 tablet by mouth once daily. No current facility-administered medications on file prior to visit. Social History Social History Tobacco Use Smoking status: Former Smokeless tobacco: Current Types: Chew Substance Use Topics Alcohol use: No Comment: occasional/social Drug use: No EXAM: BP 126/88 Pulse 78 Resp 16 Wt 126 kg (277 lb 12.8 oz) BMI 37.68 kg/m General Appearance: Well appearing, alert, in no acute distress, well-hydrated, well nourished.. Lungs: Lungs clear to auscultation. No wheezing, rhonchi, rales.. Heart: RRR without murmur, gallop, or rubs. No ectopy. Health Maintenance List HEPATITIS B(1 of 3 - 3-dose series) Never done COVID-19 VACCINE(1) Never done - Declined HEPATITIS C SCREENING Never done - Declined HIV SCREENING Never done - Declined BP CONTROLLED (<130/80) Never done DEPRESSION ASSESSMENT Never done - Declined INFLUENZA(1) due on 11/13/2021- Declined ANNUAL PCP TEAM CHRONIC DISEASE VISIT due on 08/19/2022 DTAP,TDAP,TD(2 - Td or Tdap) due on 03/07/2029 Data reviewed None. ASSESSMENT/PLAN: 1. Hypertension, essential - ICD9: 401.9, ICD10: I10 (primary diagnosis) - good control - Continue current medication(s) - Recommended regular aerobic exercise. - Recommend home blood pressure monitoring, to bring results in on next visit - Goal of BP <130/80 2. Bilateral low back pain with bilateral sciatica, unspecified chronicity - ICD9: 724.3, 724.2, ICD10: M54.42, M54.41 Chronic low back pain - Continue current medication regimen. 3. KIET (obstructive sleep apnea) - ICD9: 327.23, ICD10: G47.33 - Check with DME/Insurance. 6 mo f/u; he will get labs in Mar/Apr I agree with the Chief Complaint, ROS, and Past Histories independently gathered by the clinical computer support analyst and the remaining scribed note accurately describes my personal service to the patient. Medical Decision Making: Problems: Moderate: 2+ stable chronic illnesses Data: Unique test(s) ordered: 3+ Risk: Moderate: Drug management Medical Decision Making Level: 4 - Moderate Stephane Grullon MD The documentation for this note was completed by Jero Gibson Ma acting as scribe for Stephane Grullon MD. January 20, 2022 9:20 AM. Jero Gibson Ma documented in this encounter [facility] 09-09-2021 History of Presen t illness Narrative Sleep Study Check-In Documentation Date: September 09, 2021 Name: Franck Palacios Comments: HST was returned in working order with all sleep questionnaires. Digna Noonan Nomad# [id number] Mail out date: 09/04/21 [employer] Shipping #: [id number] [employer] Return #: [id number] Called pt to inform that they will be receiving their device on 09/05 due to not having enough devices to send out. August 29, 2021 Standing PSG Orders signed in the last 90 days None Future PSG Orders signed in the last 90 days Ordered Auth. provider PAP TITRATION PSG (CPAP, BIPAP, ASV) [[id number]] 08/19/21 Stephane Grullon MD Assoc. diagnoses: KIET (obstructive sleep apnea) [G47.33] Q: Indications: A: Obstructive sleep apnea Q: STOP-BANG conditions - Select All That Apply: A: GENDER = male A2: BMI > 35 kg/m2 A3: high blood PRESSURE Q: Special Needs (e.g.behavior, non-ambulatory, >450 lbs)?: A: No Q: Prior PAP (CPAP or Bilevel PAP) Use?: A: No Q: Sleep History: A: Sleep apnea Q: Current use of supplemental oxygen during sleep period?: A: No Q: Add supplemental oxygen if needed per sleep lab policy?: A: Yes HOME SLEEP APNEA TEST (HSAT) [[id number]] 08/19/21 Stephane Grullon MD Assoc. diagnoses: KIET (obstructive sleep apnea) [G47.33] Q: Indications: A: Obstructive sleep apnea Q: STOP-BANG conditions - Select All That Apply: A: GENDER = male A2: BMI > 35 kg/m2 A3: high blood PRESSURE Q: Current use of supplemental oxygen during sleep period?: A: No All Prior Sleep Studies (past 365 days) Some values may be hidden. Unless noted otherwise, only the newest values recorded on each date are displayed. Sleep Studies HOME SLEEP APNEA TEST (HSAT) Future Expected: Expires: 08/19/22 PAP TITRATION PSG (CPAP, BIPAP, ASV) Future Expected: Expires: 09/18/22 BMI Readings from Last 2 Encounters: 07/15/21 : 38.35 kg/m 01/02/21 : 39.05 kg/m PAST MEDICAL HISTORY Diagnosis Date [facility] 02[facility] The medical record was reviewed to determine if the proposed sleep study conforms to the AASM Practice Parameters for the Indications for Polysomnography and Related Procedures, or if the sleep study is indicated for other reasons. Indications for study: Repeat Sleep Testing prior test >1 year old Sleep study to be performed: Home Sleep Apnea Test (HSAT) Special instructions: None-follow laboratory protocol [facility] --- Sleep Medicine Staff Note: I have read the above protocol, edited as needed, and agree to the plan. Osmar Villagran III, PhD 4:22 PM, 08/29/2021 August 26, 2021 An order has been received for Home Sleep Apnea Test (HSAT) from Dr. Stephane Grullon MD, a B. [facility] Staff. Visit prep complete. Comments :No The sleep study is scheduled for 09/04/2021. Insurance: Payor: ELIESER / Plan: BLUE CARD PPO OOS / Product Type: PPO / Payor/Plan Subscr Sex Relation Sub. Ins. ID Effective Group Num 1. ELIESER CLAYTON* FRANCK PALACIOS 1990 Male Self [id number]* 03[birth year]17 [id number] Michaela Colon documented in this encounter [facility] 09-02-2021 Miscellaneous Notes Scheduled 09/04/21 Tabby Goel Ma .1st failed attempt to contact patient. Left message to return call. If patient returns call schedule Home Sleep Study. Neelam Devine PSS Please call pt to set up a sleep study appt. Tabby Goel Ma documented in this encounter [facility] 08-19-2021 History of Presen t illness Narrative Chief Complaint Patient presents with: Back Pain: lower back HPI:This Team Access Model visit is a virtual encounter. It required patient-provider interaction for the medical decision making as documented below. Patient was offered a virtual/telemedicine appointment in lieu of an office visit due to recommendations to reduce patient exposure to COVID-19. Patient is aware of limitations of performing the visit without a face to face visit in the office setting and agrees. Pt completing virtual visit today due to back injury. Pt has chronic back pain, on disability through the [place]. Pt lifts heavy weights. Uses Flexeril 10 mg prn for increased flare ups. Re injured back Wednesday08/16/21. Pain 3/10 today, stiffness if he sits or lays too long, sharp pain. He states pain is worse in the morning but improves after he does mobility drills. Denies any loss of bowel or urine control, no numbness, tingling or weakness in the legs. No pain in the legs. He would like to do PT; [facility] with power lifters. Sleep apnea: he had home sleep study done last year showing at least mild sleep apnea. He would like to explore using CPAP to help with this. Will order CPAP titration. Past medical history, appointments, medications, allergies reviewed. Previous Medical History PAST MEDICAL HISTORY Diagnosis Date Back pain 02/2016 [facility], [facility] Previous Surgical History PAST SURGICAL HISTORY Procedure Laterality Date PAST SURGICAL HISTORY OF Right 2009 Meniscus removed from right knee PAST SURGICAL HISTORY OF Left 2008 Cartilage removed from ear (cauliflower ear) Family History FAMILY HISTORY Problem Relation Age of Onset Diabetes Mother Diabetes Father Diabetes Maternal Grandfather Diabetes Paternal Grandmother Cancer Paternal Grandfather Lung Cancer Diabetes Sister Pre-DM in 1 sister Patient Allergies ALLERGIES No Known Allergies Current Medications Current Outpatient Medications on File Prior to Visit Medication Sig cyclobenzaprine (FLEXERIL) 10 mg tablet Take 1 tablet by mouth three times daily as needed for muscle spasm. lisinopril (ZESTRIL, PRINIVIL) 10 mg tablet Take 1 tablet by mouth once daily. No current facility-administered medications on file prior to visit. Social History Social History Tobacco Use Smoking status: Former Smoker Quit date: 07/03/2010 Years since quittin.1 Smokeless tobacco: Current User Types: Chew Substance Use Topics Alcohol use: No Comment: occasional/social Drug use: No EXAM: There were no vitals taken for this visit. Health Maintenance List BP CONTROLLED (<130/80) Never done HEPATITIS C SCREENING due on 01/02/2022 HIV SCREENING due on 01/02/2022 COVID-19 VACCINE(1) due on 01/02/2022 INFLUENZA(Season Ended) due on 11/13/2021 ANNUAL PCP TEAM CHRONIC DISEASE VISIT due on 07/15/2022 DEPRESSION SCREENING due on 07/15/2022 DTAP,TDAP,TD(2 - Td or Tdap) due on 03/07/2029 Data reviewed none ASSESSMENT/PLAN: 1. KIET (obstructive sleep apnea) - ICD9: 327.23, ICD10: G47.33 (primary diagnosis) - PAP TITRATION PSG (CPAP, BIPAP, ASV) - HOME SLEEP APNEA TEST (HSAT) 2. Bilateral low back pain with bilateral sciatica, unspecified chronicity - ICD9: 724.3, 724.2, ICD10: M54.42, M54.41 Chronic low back pain - PT consult - CONSULT TO PHYSICAL THERAPY He plans to get labs done next week; notify of results Follow up prn I agree with the Chief Complaint, ROS, and Past Histories independently gathered by the clinical computer support analyst and the remaining scribed note accurately describes my personal service to the patient. Stephane Grullon MD The documentation for this note was completed by Tabby Goel Ma acting as scribe for Stephane Grullon MD. August 19, 2021 10:01 AM. Tabby Goel Ma documented in this encounter [facility] 07-15-2021 History of Presen t illness Narrative Chief Complaint Patient presents with: F/U 6 Month HPI Franck Palacios is a 30 year old male who presents here today for a 6 month follow up. Pt here today for a 6 month follow up. Pt did test positive for Covid back on 02/25/21, symptoms completely resolved. Here today with his 5 year old daughter, starts school next year. HTN - Denies checking BP at home over the past couple of months. Denies having symptoms of chest pain, sob or dizziness. On current regimen of Lisinopril 10 mg once daily. Has previously in the past admitted to missing dosages. Still exercises by doing lifting. Back - Denies any current back pain at present time. Will take Flexeril 10 mg prn for flare ups. Does lifting but tries to modify. No current competitions, taking it easy with doing lifts. Feels this is improving stating that nerve is calming down. HM - Declines any depression symptoms, questions completed. Past medical history, appointments, medications, allergies reviewed. Previous Medical History PAST MEDICAL HISTORY Diagnosis Date Back pain 02/2016 [facility] Previous Surgical History PAST SURGICAL HISTORY Procedure Laterality Date PAST SURGICAL HISTORY OF Right 2009 Meniscus removed from right knee PAST SURGICAL HISTORY OF Left 2008 Cartilage removed from ear (cauliflower ear) Family History FAMILY HISTORY Problem Relation Age of Onset Diabetes Mother Diabetes Father Diabetes Maternal Grandfather Diabetes Paternal Grandmother Cancer Paternal Grandfather Lung Cancer Diabetes Sister Pre-DM in 1 sister Patient Allergies ALLERGIES No Known Allergies Current Medications Current Outpatient Medications on File Prior to Visit Medication Sig lisinopril (ZESTRIL, PRINIVIL) 10 mg tablet Take 1 tablet by mouth once daily. cyclobenzaprine (FLEXERIL) 10 mg tablet Take 1 tablet by mouth three times daily as needed for Muscle Spasm. No current facility-administered medications on file prior to visit. Social History Social History Tobacco Use Smoking status: Former Smoker Quit date: 07/03/2010 Years since quittin.0 Smokeless tobacco: Current User Types: Chew Substance Use Topics Alcohol use: No Comment: occasional/social Drug use: No EXAM: BP 122/84 (BP Site: Left Arm, BP Position: Sitting, BP Cuff Size: Large Adult) Pulse 78 Resp 16 Wt 128.3 kg (282 lb 12.8 oz) BMI 38.35 kg/m General Appearance: Well appearing, alert, in no acute distress, well-hydrated, well nourished.. Lungs: Lungs clear to auscultation. No wheezing, rhonchi, rales.. Heart: RRR without murmur, gallop, or rubs. No ectopy. Health Maintenance List BP CONTROLLED (<130/80) Never done DEPRESSION SCREENING due on 07/01/2021 HEPATITIS C SCREENING due on 01/02/2022 HIV SCREENING due on 01/02/2022 COVID-19 VACCINE(1) due on 01/02/2022 INFLUENZA(Season Ended) due on 11/13/2021 ANNUAL PCP TEAM CHRONIC DISEASE VISIT due on 01/02/2022 DTAP,TDAP,TD(2 - Td or Tdap) due on 03/07/2029 [employer]INGOCO[employer] Aged Out Data reviewed None ASSESSMENT/PLAN: 1. Hypertension, essential - ICD9: 401.9, ICD10: I10 (primary diagnosis) - good control - Continue current medication(s) - Recommended regular aerobic exercise. - Recommend home blood pressure monitoring, to bring results in on next visit - Goal of BP <140/90 - LISINOPRIL 10 MG TABLET - COMP METABOLIC PANEL - LIPID PANEL BASIC 2. Bilateral low back pain with bilateral sciatica, unspecified chronicity - ICD9: 724.3, 724.2, ICD10: M54.42, M54.41 Chronic low back pain - CYCLOBENZAPRINE 10 MG TABLET 3. Elevated LFTs - ICD9: 790.6, ICD10: R79.89 - LISINOPRIL 10 MG TABLET - COMP METABOLIC PANEL Labs ordered; notify of results Follow up in 6 months I agree with the Chief Complaint, ROS, and Past Histories independently gathered by the clinical computer support analyst and the remaining scribed note accurately describes my personal service to the patient. Medical Decision Making: Problems: Low: Stable chronic illness Data: Unique test(s) ordered: 3+ Risk: Moderate: Drug management Medical Decision Making Level: 4 - Moderate Stephane Grullon MD The documentation for this note was completed by Jero Gibson Ma acting as scribe for Stephane Grullon MD. July 15, 2021 9:30 AM. Jero Gibson Ma documented in this encounter [facility] Evaluation + Plan note No data available for this section [facility] Evaluation note Diagnosis Hypertension, essential- Primary Unspecified essential hypertension Bilateral low back pain with bilateral sciatica, unspecified chronicity Elevated LFTs Other abnormal blood chemistry Medication monitoring encounter Encounter for therapeutic drug monitoring Hyperlipidemia, unspecified hyperlipidemia type [facility] Diagnosis KIET (obstructive sleep apnea)- Primary Obstructive sleep apnea (adult) (pediatric) Bilateral low back pain with bilateral sciatica, unspecified chronicity documented in this encounter [facility] note* Diagnosis Hypertension, essential- Primary Unspecified essential hypertension Elevated LFTs Other abnormal blood chemistry Medication monitoring encounter Encounter for therapeutic drug monitoring documented in this encounter [facility] note* Diagnosis Hypertension, essential- Primary Unspecified essential hypertension Bilateral low back pain with bilateral sciatica, unspecified chronicity KIET (obstructive sleep apnea) Obstructive sleep apnea (adult) (pediatric) Medication monitoring encounter Encounter for therapeutic drug monitoring documented in this encounter [facility] note* Diagnosis KIET (obstructive sleep apnea) Obstructive sleep apnea (adult) (pediatric) documented in this encounter [facility] note* Diagnosis Hypertension, essential- Primary Unspecified essential hypertension Elevated LFTs Other abnormal blood chemistry Medication monitoring encounter Encounter for therapeutic drug monitoring documented in this encounter [facility] note* Diagnosis Acute cough- Primary Sore throat Acute pharyngitis documented in this encounter [facility] note* Diagnosis Hypertension, essential- Primary Unspecified essential hypertension Elevated LFTs Other abnormal blood chemistry KIET (obstructive sleep apnea) Obstructive sleep apnea (adult) (pediatric) Bilateral low back pain with bilateral sciatica, unspecified chronicity Medication monitoring encounter Encounter for therapeutic drug monitoring documented in this encounter [facility] note* Diagnosis Hypertension, essential Unspecified essential hypertension Elevated LFTs Other abnormal blood chemistry documented in this encounter [facility] note* Diagnosis [facility] No data available for this section [facility] Progress note No data available for this section [facility] Reason for referral (narrative)* Diagnostic Procedure Only (Routine) - Pending Review Specialty Diagnoses / Procedures Referred By Silver garcia [facility] Diagnoses KIET (obstructive sleep apnea) Procedures HOME SLEEP APNEA TEST (HSAT) SLEEP STD AIRFLOW HRT RATE&O2 SAT EFFORT UNATT Stephane Grullon MD [address] [place] [address] [facility] [address] [place] [address] Referral ID Status Reason Start Date Expiration Date Visits Requested Visits Authorized [id number] Pending Review Auto-Generat ed Referral 08/19/2021 08/19/2022 1 1 * Physical Therapy (Routine) - Pending Review Specialty Diagnoses / Procedures Referred By Silver garcia Referred To Contact [facility] Diagnoses Bilateral low back pain with bilateral sciatica, unspecified chronicity Procedures CONSULT TO PHYSICAL THERAPY PHYSICAL THERAPY EVALUATION HIGH COMPLEX 45 MINS Stephane Grullon MD [address] [place] [address] [facility] [address] [place] [address] Referral ID Status Reason Start Date Expiration Date Visits Requested Visits Authorized [id number] Pending Review Auto-Generat ed Referral 08/19/2021 08/19/2022 1 1 [facility] Summary Purpose Family History No Family History Records FoundNo Family History Records Found Advance Directives No Advanced Directives Records FoundNo Advanced Directives Records Found Health Concerns Infection Onset Date Last Indicated Resolved Time COVID-19 Confirmed 02/01/2022 02/01/2022 Additional Source Comments Source Comments (unrecognize d section and content) In the event this informatio n is protected by the Federal Confidentiality of Alcohol and Drug Abuse Patient Records regulations: The Federal rules restrict any use of the information to criminally investigate or prosecute any alcohol or drug abuse patient.[facility] the event this information is protected by the Federal Confidentiality of Alcohol and Drug Abuse Patient Records regulations: The Federal rules restrict any use of the information to criminally investigate or prosecute any alcohol or drug abuse patient.[facility] the event this information is protected by the Federal Confidentiality of Alcohol and Drug Abuse Patient Records regulations: The Federal rules restrict any use of the information to criminally investigate or prosecute any alcohol or drug abuse patient.[facility] the event this information is protected by the Federal Confidentiality of Alcohol and Drug Abuse Patient Records regulations: The Federal rules restrict any use of the information to criminally investigate or prosecute any alcohol or drug abuse patient.[facility] the event this information is protected by the Federal Confidentiality of Alcohol and Drug Abuse Patient Records regulations: The Federal rules restrict any use of the information to criminally investigate or prosecute any alcohol or drug abuse patient.[facility] the event this information is protected by the Federal Confidentiality of Alcohol and Drug Abuse Patient Records regulations: The Federal rules restrict any use of the information to criminally investigate or prosecute any alcohol or drug abuse patient.[facility] the event this information is protected by the Federal Confidentiality of Alcohol and Drug Abuse Patient Records regulations: The Federal rules restrict any use of the information to criminally investigate or prosecute any alcohol or drug abuse patient.[facility] the event this information is protected by the Federal Confidentiality of Alcohol and Drug Abuse Patient Records regulations: The Federal rules restrict any use of the information to criminally investigate or prosecute any alcohol or drug abuse patient.[facility] the event this information is protected by the Federal Confidentiality of Alcohol and Drug Abuse Patient Records regulations: The Federal rules restrict any use of the information to criminally investigate or prosecute any alcohol or drug abuse patient.[facility] the event this information is protected by the Federal Confidentiality of Alcohol and Drug Abuse Patient Records regulations: The Federal rules restrict any use of the information to criminally investigate or prosecute any alcohol or drug abuse patient.[facility] the event this information is protected by the Federal Confidentiality of Alcohol and Drug Abuse Patient Records regulations: The Federal rules restrict any use of the information to criminally investigate or prosecute any alcohol or drug abuse patient.[facility] the event this information is protected by the Federal Confidentiality of Alcohol and Drug Abuse Patient Records regulations: The Federal rules restrict any use of the information to criminally investigate or prosecute any alcohol or drug abuse patient.[facility] the event this information is protected by the Federal Confidentiality of Alcohol and Drug Abuse Patient Records regulations: The Federal rules restrict any use of the information to criminally investigate or prosecute any alcohol or drug abuse patient.[facility] the event this information is protected by the Federal Confidentiality of Alcohol and Drug Abuse Patient Records regulations: The Federal rules restrict any use of the information to criminally investigate or prosecute any alcohol or drug abuse patient.[facility] the event this information is protected by the Federal Confidentiality of Alcohol and Drug Abuse Patient Records regulations: The Federal rules restrict any use of the information to criminally investigate or prosecute any alcohol or drug abuse patient.[facility] the event this information is protected by the Federal Confidentiality of Alcohol and Drug Abuse Patient Records regulations: The Federal rules restrict any use of the information to criminally investigate or prosecute any alcohol or drug abuse patient.[facility] Reason for Visit (unrecogniz ed section and content) Reason Comments F/U 6 Month Reason Comments Back Pain lower back Reason Comments sleep study appt Reason Comments Information Reason Comments Forms [employer] supplies Reason Comments Forms [employer]; CPAP Reason Comments 6 Month Exam Reason Comments Cough Chest congestion, pr oductive cough with bloody sputum, headache, R side of throat sore x 2 days Reason Comments Follow Up Reason Onset Date Comments Refill Request 10/18/2023 Care Teams (unrecognized sec tion and content) Head Of Cytogenetics Relationship Specialty Start Date End Date Stephane Grullon MD [address] [place] [address] PCP - General Family Practice 10/08/17 Head Of Cytogenetics Relationship Specialty Start Date End Date Stephane Grullon MD [address] [place] [address] PCP - General Family Practice 10/08/17 Head Of Cytogenetics Relationship Specialty Start Date End Date Stephane Grullon MD [address] [place] [address] PCP - General Family Practice 10/08/17 Head Of Cytogenetics Relationship Specialty Start Date End Date Stephane Grullon MD [address] [place] [address] PCP - General Family Practice 10/08/17 Head Of Cytogenetics Relationship Specialty Start Date End Date Stephane Grullon MD [address] [place] [address] PCP - General Family Practice 10/08/17 Head Of Cytogenetics Relationship Specialty Start Date End Date Stephane Grullon MD [address] [place] [address] PCP - General Family Medicine 10/08/17 Head Of Cytogenetics Relationship Specialty Start Date End Date Stephane Grullon MD [address] [place] [address] PCP - General Family Medicine 10/08/17 Head Of Cytogenetics Relationship Specialty Start Date End Date Stephane Grullon MD [address] [place] [address] PCP - General Family Medicine 10/08/17 Head Of Cytogenetics Relationship Specialty Start Date End Date Stephane Grullon MD [address] [place] [address] PCP - General Family Medicine 10/08/17 Head Of Cytogenetics Relationship Specialty Start Date End Date Stephane Grullon MD [address] [place] [address] PCP - General Family Medicine 10/08/17 Head Of Cytogenetics Relationship Specialty Start Date End Date Stephane Grullon MD [address] [place] [address] PCP - General Family Medicine 10/08/17 Head Of Cytogenetics Relationship Specialty Start Date End Date Stephane Grullon MD [address] [place] [address] PCP - General Family Medicine 10/08/17 Head Of Cytogenetics Relationship Specialty Start Date End Date Stephane Grullon MD [address] [place] [address] PCP - General Family Medicine 10/08/17 Head Of Cytogenetics Relationship Specialty Start Date End Date Stephane Grullon MD [address] [place] [address] PCP - General Family Medicine 10/08/17 Head Of Cytogenetics Relationship Specialty Start Date End Date Stephane Grullon MD [address] [place] [address] PCP - General Family Medicine 7/27/18 Care Team (unrecognized sect ion and content) Care Team Personnel Name: STEPHANE GRULLON MD Member Role: Primary Care Physician Address: Address: [address] [place] [address]- (unrecognized sect ion and content) No Status Records FoundNo Status Records Found INFORMATION SOURCE (unrecogn ized section and content) DATE CREATED AUTHOR 01/04/2022 [facility] ([place]) DATE CREATED AUTHOR AUTHOR'S ORGANIZ ATION 08/05/2023 [facility] FOR RECORDS PERTAINING TO PATIENTS WHO ARE OR HAVE BEEN ENROLLED IN A CHEMICAL DEPENDENCY/SUBSTANCEABUSE PROGRAM, SOME INFORMATION MAY BE OMITTED. This clinical summary was aggregated from multiple sources. Caution should be exercised in using it in the provision of clinical care. This summary normalizes information from multiple sources, and as a consequence, information in this document may materially change the coding, format and clinical context of patient data. In addition, data may be omitted in some cases. CLINICAL DECISIONS SHOULD BE BASED ON THE PRIMARY CLINICAL RECORDS. [facility] [employer] provides no warranty or guarantee of the accuracy or completeness of information in this document.
== END 2024-01-12 19:00 | disposition left against medical advice (07) ==
LOC: ED 19:18
PROVIDERS: PCP Family Medicine
DX: Z53.21 Procedure and treatment not carried out due to patient leaving prior to being seen by health care provider (principal)